=== PATIENT | female | born 1990 ===

== ENCOUNTER 2020-11-07 09:42 | Outpatient (REF) | payer MEDICAID, SELFPAY | END 2020-11-07 09:43 | disposition home or self-care (01) | LOC: HO.LAB 09:42 | PROVIDERS: Visit Provider Internal Medicine | DX: Z20.828 Contact with and (suspected) exposure to other viral communicable diseases (principal) | CPT/HCPCS: C9803; U0003 ==

== ENCOUNTER 2021-02-16 08:14 | Emergency (ER) | payer MEDICAID, SELFPAY ==
--- NOTE | ~2021-02-16 | XR_ITS ---
EXAMINATION: XR CHEST CLINICAL INFORMATION: Cough COMPARISON: November 09, 2014 TECHNIQUE: AP portable chest view of the chest was obtained. FINDINGS: No significant abnormality is noted involving the heart, lungs, mediastinum, bony thorax or soft tissues. XR/XR chest 1V IMPRESSION: No acute disease.
[2021-02-16 08:20] VITALS: BP 115/70; PULSE 113; RESP 18; TEMP 37.7; O2SAT 98; BMI 29.2
--- NOTE | 2021-02-16 09:22 | PC.NURSE ---
seen by provider, swab and ua sent, awaiting xray. givn water per request, tolerating po w/o issue, medicated per emar.
[2021-02-16 09:26] LABS: Glucose Urine UA NEG (NEG); Leukocyte Esterase Urine NEG (NEG); Nitrite Urine NEG (NEG); PH 8.5 (5.0-8.0); Urine Blood 2+ (NEG); Urine Ketones NEG (NEG); Urine Protein NEG (NEG-TRACE)
[2021-02-16 09:27] LABS: Appearance Urine HAZY; Color Urine YELLOW
[2021-02-16 09:28] LABS: UPreg QC Valid YES; Urine Pregnancy NEGATIVE (NEGATIVE)
[2021-02-16 09:41] LABS: Mucus Urine TRACE /LPF; Squamous Epithelial Cell Urine 2+ /LPF
[2021-02-16 10:09] LABS: Influenza A PCR NEGATIVE (Negative); Influenza B PCR NEGATIVE (Negative); Resp Syncy Virus RNA Qual PCR NEGATIVE (Negative); SARS COV2 PCR INHOUSE POSITIVE (Negative)
--- NOTE | 2021-02-16 10:12 | ED_ITS ---
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 Onset (ago): day(s) (1) Radiation: non-radiation Severity: moderate Quality: aching Relieving factors: none Exacerbating factors: none Associated symptoms: cough Treatments prior to arrival: none Related Data Previous Rx's Medication Instructions Recorded ondansetron HCl [Zofran] 4 mg PO Q8H PRN #10 tab 02/16/21 Allergies Allergy/AdvReac Type Severity Reaction Status Date / Time No Known Allergies Allergy Unverified 08/11/20 17:35 sumatriptan AdvReac Unknown vomiting Verified 01/23/18 00:00 Review of Systems Review of Systems: Constitutional: No Weight loss, No Fever, No Chills, No Night Sweats, No Fatigue, No Malaise ENT/Mouth: No Hearing loss, No Ear Pain, No Nasal Congestion, No Sinus Pain, No Hoarseness, No sore throat, No Rhinorrhea, No Swallowing Difficulty Eyes: No Eye Pain, No Swelling, No Redness, No Foreign Body, No Discharge, No Vision Changes Cardiovascular: No Chest Pain, No SOB, No Dyspnea on Exertion, No Orthopnea, No Edema, No Palpitations Respiratory: + Cough, No Sputum, No Wheezing, No Smoke Exposure, No Dyspnea Gastrointestinal: + Nausea, No Vomiting, No Diarrhea, No Constipation, No abdominal Pain, No Hematochezia, No Melena Genitourinary: no irregular bleeding, No Dysuria, No Urinary Frequency, No Hematuria, No Urinary Incontinence, No Urgency, No Flank Pain, No Urinary Flow Changes, No Hesitancy Musculoskeletal: No joint pain, No Myalgias, No Joint Swelling Skin: No Skin Lesions, No rash Neuro: No Weakness, No Numbness, No Paresthesias, No Loss of Consciousness, No Dizziness, No Headache Psych: No Social Issues Heme/Lymph: No Bruising, No Bleeding,No Lymphadenopathy Endocrine: No Polyuria, No Polydipsia, No Temperature Intolerance Yes all other systems are reviewed and are negative [facility] Past Medical History Medical History (Updated 02/16/21 @ 11:09 by John Wharton NP) No known health problems Social History Social History Alcohol intake: never Smoking Status: Former smoker Smoked in Last 30 Days: No Use of substances other than those prescribed or required for medical reasons: No Advance Directives: No Advance Directives Information Provided: No Physical Exam Vital Signs: Vital Signs: Last Vital Signs Temp 99.9 F 02/16/21 08:20 Pulse 113 H 02/16/21 08:20 Resp 18 02/16/21 08:20 BP 115/70 02/16/21 08:20 Pulse Ox 98 02/16/21 08:20 Body Mass Index 29.2 Course Course Course Narrative: Otherwise healthy denies any significant past medical history does have remote history of cholecystectomy. Overall nontoxic appearing. VSS, NAD, chest x-ray negative. Slightly tachy but febrile upon arrival and she is COVID positive. Aside from diffuse body aches is no abdominal pain, chest pain, shortness of breath. Will discharge home with supportive care, return, follow- up instructions. Medical Decision Making Lab Data Labs: Lab Results 02/16/21 02/16/21 02/16/21 Range/Units 09:15 09:16 09:16 Urine Color YELLOW Urine Appearance HAZY Urine pH 8.5 H (5.0-8.0) Ur Specific [place] 1.020 (1.005-1.025) Urine Protein NEG (NEG-TRACE) MG/DL Urine Glucose (UA) NEG (NEG) MG/DL Urine Ketones NEG (NEG) MG/DL Urine Blood 2+ H (NEG) Urine Nitrite NEG (NEG) Ur Leukocyte Esterase NEG (NEG) Urine RBC 15-29 H (0) /HPF Urine WBC 1-4 (0-4) /HPF Ur Squamous Epith Cells 2+ /LPF Urine Bacteria NONE /LPF Urine Mucus TRACE /LPF Urine Test NEGATIVE (NEGATIVE) Coronavirus (PCR) POSITIVE A (Negative) Influenza Type A (PCR) NEGATIVE (Negative) Influenza Type B (PCR) NEGATIVE (Negative) RSV RNA Qual (PCR) NEGATIVE (Negative) Discharge Plan Discharge Clinical Impression: COVID-19 Patient Disposition: Home, Self-Care Instructions: COVID-19 (Coronavirus Disease 2019) (ED) Additional Instructions: Drink plenty fluids Supportive care discussed Isolates your self/quarantine for 14 days Return if any concerns or worsening symptoms Follow up with her primary care doctor as discussed via phone as needed Thank you Prescriptions: New ondansetron HCl [Zofran] 4 mg tablet 4 mg PO Q8H PRN (Reason: nausea and vomiting) Qty: 10 RF: 0 Referrals: Leilani Wong MD [Primary Care Provider] - 2 weeks (Phone visit)
== END 2021-02-16 11:21 | disposition home or self-care (01) ==
PROVIDERS: Nurse Practitioner Primary Care; Emergency Provider Emergency Medicine; PCP Internal Medicine
DX: U07.1 COVID-19 (principal); R51.9 Headache, unspecified
CPT/HCPCS: 0241U; 36415; 71045; 81001; 81025; 99283; 99284

== ENCOUNTER 2021-07-11 08:40 | Emergency (ER) | payer MEDICAID, SELFPAY ==
[2021-07-11 08:51] VITALS: BP 121/76; PULSE 78; RESP 18; TEMP 36.6; O2SAT 98; BMI 32.9
--- NOTE | 2021-07-11 08:58 | PC.NURSE ---
waiting for paper inserter
--- NOTE | 2021-07-11 09:04 | ED.HA ---
HPI - Headache General Chief Complaint: Headache Stated Complaint: headache Time Seen by Provider: 07/11/21 09:02 Source: patient Mode of arrival: ambulatory Limitations: no limitations History of Present Illness HPI Narrative: Patient's history of migraine been complaining of right-sided headache for last 3 days similar to that in the past with light sensitivity and nausea and vomiting no fever no chills no neck pain MD elicited complaint: migraine Related Data Previous Rx's Medication Instructions Recorded ondansetron HCl 4 mg tablet 4 mg PO Q8H PRN #10 tab 02/16/21 (Zofran) frvrtrptgq-wqkeaibpzpwpy-aksvqpjm 1 cap PO Q6H PRN #20 cap 07/11/21 50 mg-300 mg-40 mg capsule (Fioricet) sumatriptan succinate 50 mg tablet 50 mg PO Q2H PRN #10 tab 07/11/21 (Imitrex) Allergies Allergy/AdvReac Type Severity Reaction Status Date / Time No Known Allergies Allergy Unverified 08/11/20 17:35 Review of Systems Review of Systems: Yes all other systems are reviewed and are negative [facility] Past Medical History Medical History No known health problems Social History Social History Alcohol intake: never Advance Directives: No Advance Directives Information Provided: No Patient : No Physical Exam Vital Signs: Vital Signs: Last Vital Signs Temp 97.9 F 07/11/21 08:51 Pulse 69 07/11/21 10:00 Resp 18 07/11/21 08:51 BP 124/68 07/11/21 10:00 Pulse Ox 98 07/11/21 08:51 Body Mass Index 32.9 Const: General: no acute distress and well developed Orientation/consciousness: patient oriented x3 HENMT: Head: Yes normocephalic and No Temporal artery tenderness present Face and sinus: Yes normal facial exam Mouth: Normal oral and palatal mucosa present Eyes: General: appearance normal, both eyes and all related structures Neck: Neck: Yes full ROM Lymphatic: no lymphadenopathy noted Resp: Effort & Inspection: able to speak in complete sentences Auscultation: clear to auscultation bilaterally Cardio: Palpation: normal PMI Rate: regular rate Rhythm: regular rhythm Heart sounds: S1 normal heart sound present and S2 normal heart sound present Neuro: General: patient oriented x3, gait normal, no focal motor deficits and CN's II-XI intact bilaterally MDM - Headache MDM Narrative Medical decision making narrative: Patient feeling much better after Imitrex headache almost gone will discharge patient home Differential Diagnosis Differential diagnosis: Likely migraine Discharge Plan Discharge Clinical Impression: Migraine Qualifiers: Migraine type: without aura Status migrainosus presence: without status migrainosus Intractability: not intractable Qualified Code(s): G43.009 - Migraine without aura, not intractable, without status migrainosus Patient Disposition: Home, Self-Care Instructions: Migraine Headache (ED) Additional Instructions: Rest at home take medication for her headache as prescribed Imitrex 1 tablet at onset of headache repeat in 2 hours if headache is still there maximum 2 tablets in 24 hours Prescriptions: New sumatriptan succinate [Imitrex] 50 mg tablet 50 mg PO Q2H PRN (Reason: migraine headache) Qty: 10 RF: 0 xejyldhcyv-dtiuxkjonxuvv-ufbz [Fioricet] 50-300-40 mg capsule 1 cap PO Q6H PRN (Reason: pain) Qty: 20 RF: 0 No Action ondansetron HCl [Zofran] 4 mg tablet 4 mg PO Q8H PRN (Reason: nausea and vomiting) Qty: 10 RF: 0 Stand Alone Forms: Work/School Release
[2021-07-11] MEDS: Ondansetron ODT 4 MG TAB.RAPDIS TRANSLINGU (09:19)
[2021-07-11 10:00] VITALS: BP 124/68; PULSE 69
--- NOTE | 2021-07-11 10:14 | PC.NURSE ---
PATIENT STATES FEELING BETTER PAIN LEVEL CURRENTLY 2/10. PROVIDER AWARE
== END 2021-07-11 10:47 | disposition home or self-care (01) ==
PROVIDERS: Emergency Provider Internal Medicine; PCP Internal Medicine
DX: G43.009 Migraine without aura, not intractable, without status migrainosus (principal); Z86.16 Personal history of COVID-19
CPT/HCPCS: 96372; 99284; J3030

== ENCOUNTER 2022-01-06 20:13 | Emergency (ER) | payer MEDICAID, SELFPAY ==
[2022-01-06 20:54] VITALS: BP 133/85; PULSE 79; RESP 16; TEMP 36.3; O2SAT 98; BMI 32.0
--- NOTE | 2022-01-07 00:02 | ED_ITS ---
HPI - Animal Bite General Chief Complaint: Animal Bite Stated Complaint: dog bite @ work Source: patient Mode of arrival: ambulatory Limitations: language barrier History of Present Illness HPI narrative: 31-year-old female presents with a dog bite to the right thigh. 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 complaint: animal bite Onset (ago): hour(s) (Within the hour of arrival) Animal: dog Description of animal: unknown animal Mechanism: bite Location: buttocks Pain description: constant (Aching) Severity scale (1-10): 5 Context: unprovoked Treatments prior to arrival: wound dressing(s) Related Data Patient tetanus UTD: No Previous Rx's Medication Instructions Recorded ondansetron HCl 4 mg tablet 4 mg PO Q8H PRN #10 tab 02/16/21 (Zofran) vdcnynacas-rhdcufxrcldwo-mnjzogvi 1 cap PO Q6H PRN #20 cap 07/11/21 50 mg-300 mg-40 mg capsule (Fioricet) sumatriptan succinate 50 mg tablet 50 mg PO Q2H PRN #10 tab 07/11/21 (Imitrex) Allergies Allergy/AdvReac Type Severity Reaction Status Date / Time No Known Allergies Allergy Verified 01/06/22 20:52 Review of Systems Review of Systems: Constitutional: No Fever, No Chills ENT/Mouth: No Ear Pain, No Hoarseness, No sore throat Eyes: No Eye Pain, No Swelling, No Redness, No Foreign Body Cardiovascular: No Chest Pain, No SOB Respiratory: No Cough, No Dyspnea Gastrointestinal: No Nausea, No Vomiting, No Diarrhea, No abdominal Pain Genitourinary: No Dysuria, No Hematuria Musculoskeletal: positive left buttock pain, No Myalgias, No Joint Swelling Skin: Positive animal bite to the left buttock, No Skin lacerations, No rash Neuro: No Weakness, No Numbness, No Paresthesias, No Loss of Consciousness, No Dizziness, No Headache Psych: No Anxiety/Panic, No Depression Heme/Lymph: no easy bruising, no Lymphadenopathy Endocrine: No Polyuria, No Polydipsia Yes all other systems are reviewed and are negative PMFSH Past Medical History Attestation statement: The following information was validated with the patient. Source: old records reviewed Medical History No known health problems Social History Social History Alcohol intake: never Advance Directives: No Physical Exam Vital Signs: Vital Signs: Last Vital Signs Temp 97.3 F 01/06/22 20:54 Pulse 79 01/06/22 20:54 Resp 16 01/06/22 20:54 BP 133/85 01/06/22 20:54 Pulse Ox 98 01/06/22 20:54 BMI result Body Mass Index 32.0 Appearance: Alert. Oriented X3. No acute distress. Eyes: Pupils equal, round and reactive to light. ENT: Pharynx normal. Neck: Normal inspection. Neck supple. CVS: Normal heart rate and rhythm. Pulses normal. Respiratory: No respiratory distress. Breath sounds normal. Abdomen: Soft and nontender. Skin: 0.5 cm puncture wound to the right buttock, otherwise Skin warm and dry. Normal skin color. Normal skin turgor. Extremities: No lower extremity edema. Gait well-balanced well coordinated. Neuro: No motor deficit. No sensory deficit. Cranial nerves 2-12 intact. Course Course Course Narrative: 31-year-old female presents with a animal bite, unknown dog, to the right buttock. Patient clean the area and applied a bandage. Will treat for rabies and update Tdap vaccine. Patient does understand that she must return for rabies series. Patient verbalized understanding of and agrees plan of care discharge home. Verbalized understanding of signs and symptoms indicating need for emergent intervention. bookseamer blindstitch utilized for all correspondence. Google translate utilized for discharge instructions. MDM - Animal Bite Differential Diagnosis Differential diagnosis: Likely dog bite Medical Records Attestation: I reviewed the patient's medical records. Discharge Plan Discharge Clinical Impression: Rabies contact, Dog bite Patient Disposition: Home, Self-Care Instructions: Animal Bite (ED), Rabies (ED) Additional Instructions: Fuiste evaluado por mordedura de ko en la nalga derecha. Le tratamos con inmunoglobulina antirr?bica y vacuna antirr?bica. Debe regresar para la serie de vacunas contra la gracia. Actualizamos aranda vacuna Tdap hoy. Chelo por elegir juan departamento de emergencias para aranda evaluaci?n. Por favor, roland un seguimiento con el m?dico de atenci?n primaria seg?n sea necesario. Regrese al departamento de emergencias por cualquier s?ntoma nuevo, preocupante o que empeore. You were evaluated for dog bite to the right buttock. We treated you with rabies immunoglobulin and rabies vaccine. You must return for rabies vaccine series. We updated your Tdap vaccine today. Thank you for choosing this emergency department for evaluation. Please follow-up with primary care physician as needed. Return to the emergency department for any new, concerning, or worsening symptoms. Prescriptions: No Action ondansetron HCl [Zofran] 4 mg tablet 4 mg PO Q8H PRN (Reason: nausea and vomiting) Qty: 10 0RF sumatriptan succinate [Imitrex] 50 mg tablet 50 mg PO Q2H PRN (Reason: migraine headache) Qty: 10 0RF Rx Instructions: do not exceed 2 doses per 24 hrs elqkvojkqn-abicmhstnxrje-mueq [Fioricet] 50-300-40 mg capsule 1 cap PO Q6H PRN (Reason: pain) Qty: 20 0RF Referrals: [facility] [Provider Group] - 2 days (Dog bite, rabies vaccine)
[2022-01-07] MEDS: Rabies Vaccine (PCEC)/PF 1 ML VIAL IM (00:43)
[2022-01-07] MEDS: Rabies Immune Globulin/PF 900 UNIT/3 ML VIAL 1589.42 UNIT IM (00:44)
[2022-01-07] MEDS: Diphth,Pertus(ACell),Tet Adult 0.5 ML SYRINGE IM (00:45)
== END 2022-01-07 01:46 | disposition home or self-care (01) ==
LOC: HO.ED 01-07 00:22
PROVIDERS: Emergency Provider Emergency Medicine Emergency Medical Services
DX: S70.371A Other superficial bite of right thigh, initial encounter (principal); M79.604 Pain in right leg; W54.0XXA Bitten by dog, initial encounter; Y93.9 Activity, unspecified; Y92.9 Unspecified place or not applicable; Y99.0 Civilian activity done for income or pay; Z79.899 Other long term (current) drug therapy
CPT/HCPCS: 90375; 90471; 90675; 90715; 96372; 99284

== ENCOUNTER 2022-01-10 07:19 | Outpatient (REF) | payer MEDICAID, SELFPAY | END 2022-01-10 07:20 | disposition home or self-care (01) | LOC: HO.MDS 07:19 | PROVIDERS: PCP Internal Medicine | DX: Z29.14 Encounter for prophylactic rabies immune globulin (principal); S31.815D Open bite of right buttock, subsequent encounter; W54.0XXD Bitten by dog, subsequent encounter; Z20.3 Contact with and (suspected) exposure to rabies | CPT/HCPCS: 90471; 90675 ==

== ENCOUNTER 2022-01-14 09:54 | Outpatient (REF) | payer MEDICAID, SELFPAY | END 2022-01-14 09:55 | disposition home or self-care (01) | LOC: HO.MDS 09:54 | PROVIDERS: PCP Internal Medicine | DX: Z29.14 Encounter for prophylactic rabies immune globulin (principal); S70.371D Other superficial bite of right thigh, subsequent encounter; W54.0XXD Bitten by dog, subsequent encounter; Z20.3 Contact with and (suspected) exposure to rabies | CPT/HCPCS: 90471; 90675 ==

== ENCOUNTER 2022-01-21 09:40 | Outpatient (REF) | payer MEDICAID, SELFPAY | END 2022-01-21 09:41 | disposition home or self-care (01) | LOC: HO.MDS 09:40 | DX: Z29.14 Encounter for prophylactic rabies immune globulin (principal); S70.371D Other superficial bite of right thigh, subsequent encounter; S30.870D Other superficial bite of lower back and pelvis, subsequent encounter; W54.0XXD Bitten by dog, subsequent encounter; Z20.3 Contact with and (suspected) exposure to rabies | CPT/HCPCS: 90471; 90675 ==

== ENCOUNTER 2022-05-17 12:46 | Outpatient (RCR) | payer OTHER, SELFPAY | END 2022-05-18 10:48 | disposition home or self-care (01) | LOC: HO.WCC 12:46 | PROVIDERS: PCP Internal Medicine; Visit Provider Surgery | DX: Z09 Encounter for follow-up examination after completed treatment for conditions other than malignant neoplasm (principal); I10 Essential (primary) hypertension; Z87.2 Personal history of diseases of the skin and subcutaneous tissue | CPT/HCPCS: 99212 ==

== ENCOUNTER 2022-12-01 07:55 | Outpatient (REF) | payer OTHER, SELFPAY ==
[2022-12-01 08:12] LABS: MANUAL DIFF FLAG NO
[2022-12-01 08:34] LABS: Basophils Percent Auto 0.8 % (0-2); Eosinophils Absolute Auto 0.1 X10*3/uL (0.0-0.4); Hematocrit 41.1 % (37.0-47.0); Hemoglobin 13.6 g/dl (12.0-16.0); Imm Gran Abs Auto 0.01 X10*3/uL (0.00-0.03); Imm Gran Pct Auto 0.2 % (0.0-0.4); Lymphocytes Absolute Auto 1.3 X10*3/uL (1.2-4.9); Lymphocytes Percent Auto 26.9 % (20-40); Mean Corpuscular HGB Conc 33.1 g/dl (31.0-35.0); Mean Corpuscular Hemoglobin 28.3 pg (27.0-33.0); Mean Corpuscular Volume 85.4 fL (80.0-98.0); Mean Platelet Volume 10.7 fL (9.4-12.3); Monocytes Absolute Auto 0.3 X10*3/uL (0.1-1.2); Monocytes Percent Auto 5.5 % (2-11); Neutrophils Absolute Auto 3.2 x10*3/uL (2.0-8.3); Neutrophils Percent Auto 64.6 % (45-73); Platelet Count 254 X10*3/uL (160-400); Red Blood Count 4.81 X10*6/uL (4.20-5.50); Red Cell Distribution Width 13.2 % (11.0-16.0)
[2022-12-01 08:39] LABS: Prothrombin Time 11.6 SEC (10.0-13.1)
[2022-12-01 08:41] LABS: Partial Thromboplastin Time 38.8 SEC (26.0-36.4)
[2022-12-01 08:45] LABS: Estimated Average Glucose 100 mg/dL; Hemoglobin A1c % 5.1 %
[2022-12-01 09:05] LABS: Alanine Aminotransferase 18 U/L (0-31); Albumin Level 4.7 g/dL (3.5-5.0); Alkaline Phosphatase 64 U/L (39-117); Anion Gap 13 (12-20); Aspartate Amino Transferase 31 U/L (5-31); Bilirubin Total 0.8 mg/dL (0.0-1.0); Blood Urea Nitrogen 17 mg/dL (9-16); Calcium 9.8 mg/dL (8.4-10.2); Carbon Dioxide 27 mmol/L (22-29); Chloride 104 mmol/L (96-108); Estimated Glomerular Filt Rate > 60; Glucose Fasting 88 mg/dL (60-99); Potassium 4.2 mmol/L (3.3-5.1); Sodium 140 mmol/L (135-145); Total Protein 7.8 g/dL (6.5-8.0)
[2022-12-01 09:13] LABS: HCG Quantitative < 2 mIU/mL
[2022-12-03 09:34] LABS: HIV AB/AG Nonreactive (Nonreactive); HIV Num 1 0.07 S/CO (0.00-0.99)
== END 2022-12-01 07:56 | disposition home or self-care (01) ==
LOC: HO.LAB 07:55
PROVIDERS: Visit Provider Internal Medicine
DX: Z01.818 Encounter for other preprocedural examination (principal); Z11.4 Encounter for screening for human immunodeficiency virus [HIV]; D64.9 Anemia, unspecified; E11.40 Type 2 diabetes mellitus with diabetic neuropathy, unspecified
CPT/HCPCS: 36415; 80053; 83036; 84702; 85025; 85610; 85730; 87389

== ENCOUNTER 2022-12-04 10:22 | Outpatient (REF) | payer OTHER, SELFPAY ==
--- NOTE | 2022-12-04 10:30 | ECG_ITS ---
Test Reason : PRE OP Blood Pressure : / mmHG Vent. Rate : 059 BPM Atrial Rate : 059 BPM P-R Int : 148 ms QRS Dur : 090 ms QT Int : 390 ms P-R-T Axes : 024 004 018 degrees QTc Int : 386 ms Sinus bradycardia Otherwise normal ECG When compared with ECG of 23-AUG-2016 02:45, No significant change was found Referred By: Adriane Frost Electronically Signed By:Jett Cavanaugh
[2022-12-04 11:55] LABS: Sickle Cell Scr NEGATIVE (NEGATIVE)
[2022-12-04 13:09] LABS: Free T4 (Free Thyroxine) 1.06 ng/dL (0.71-1.85); Thyroid Stimulating Hormone 0.33 uIU/mL (0.32-4.0)
[2022-12-06 05:03] LABS: Triiodothyronine T3 Free 4.1 pg/mL (2.3-4.2)
== END 2022-12-04 10:23 | disposition home or self-care (01) ==
LOC: HO.LAB 10:22
PROVIDERS: Nurse Practitioner Family; PCP Internal Medicine; Visit Provider Internal Medicine
DX: Z01.818 Encounter for other preprocedural examination (principal)
CPT/HCPCS: 36415; 84439; 84443; 84481; 85660; 93005

== ENCOUNTER 2023-02-27 16:30 | Emergency (ER) | payer OTHER, SELFPAY ==
--- NOTE | ~2023-02-27 | US_ITS ---
EXAMINATION: US VENOUS ULTRASOUND WITH DOPPLER LOWER EXTREMITY, LEFT CLINICAL INFORMATION: Pain. COMPARISON: No similar priors. TECHNIQUE: Ultrasound of the deep veins is performed from the hip to the calf with compression sonography and color and pulse Doppler assessment. Spectral analysis with color-flow imaging is performed. FINDINGS: There is normal venous compression and respiratory variation and augmented flow. The visualized common femoral vein, superficial femoral vein, profunda femoral vein, popliteal vein, and the trifurcation region shows no evidence of deep venous thrombosis. There is no significant popliteal fossa cyst. In the area of pain in the posterior distal thigh and posterior calf as indicated by the patient, there are prominent venous varicosities. If the patient's symptoms persist, followup ultrasound in 5 days 7 days might be of value to exclude proximal propagation from a non-visualized calf vein. US/US venous duplex LE IMPRESSION: 1. No DVT demonstrated in the left lower extremity. 2. In the area of pain in the posterior distal thigh and posterior calf as indicated by the patient, there are prominent venous varicosities. Correlation with a targeted ultrasound for venous reflux/insufficiency and cardiovascular lab director consultation could be obtained if clinically indicated for further management of these varicosities.
[2023-02-27 17:07] VITALS: BP 130/80; PULSE 80; RESP 18; TEMP 36.8; O2SAT 97; BMI 29.2
--- NOTE | 2023-02-27 17:08 | ED.EXTPRO ---
HPI - Extremity Problem General Stated complaint: L leg circulation Related Data Previous Rx's Medication Instructions Recorded topiramate 25 mg tablet 25 mg PO BEDTIME 90 days #90 tabs 03/21/22 mayfuzescz-hmqeowoxiqjqs-aqubuvcr 1 cap PO Q6H PRN pain #10 caps 05/04/22 50 mg-300 mg-40 mg capsule (Fioricet) Allergies Allergy/AdvReac Type Severity Reaction Status Date / Time sumatriptan [From Imitrex] AdvReac Severe palpitations, Verified 02/27/23 17:11 arm numbness PMFSH Past Medical History Medical History Class 1 obesity with body mass index (BMI) of 32.0 to 32.9 in adult COVID-19 Migraines Surgical History History of cholecystectomy Family History Family History (Updated 01/02/23 @ 17:40 by Leilani Kimbrough MD) Father Diabetes mellitus Hypertension Social History Social History Housing: Apartment Alcohol intake: never Patient Tobacco Use Status: Never used Tobacco e-Cigarette/Vaping Use: Never Used Second Hand Smoke Exposure: No service: No Current occupational status: employed Current occupational exposures/hazards: No Cognitive needs: Yes Hearing needs: No Vision needs: No Course Course Course Narrative: RME - 32 yo female with history of PTSD, migraines, anxiety who presents to the ER for evaluation of left leg cramping that is acute on chronic, worse the last 2 weeks. She states the toes on her left foot turn black sometimes. She reports severe cramping pains in her calf and hamstring when walking. Exam reveals left foot is warm and well perfused, 2+ pulses. toes slightly cool but normal color, cap refill <3sec. No evidence of arterial disease. +calf tenderness but no swelling or redness. Plan: LE doppper and basic labs to r/o metabolic cause Discharge Plan Discharge Prescriptions: No Action topiramate 25 mg tablet 25 mg PO BEDTIME 90 Days Qty: 90 0RF rodekwbhrl-uldaldgdxamwu-mqlo [Fioricet] 50-300-40 mg capsule 1 cap PO Q6H PRN (Reason: pain) Qty: 10 0RF
[2023-02-27 17:37] LABS: MANUAL DIFF FLAG NO
[2023-02-27 17:43] LABS: Basophils Absolute Auto 0.1 X10*3/uL (0.0-0.2); Basophils Percent Auto 0.6 % (0-2); Eosinophils Absolute Auto 0.2 X10*3/uL (0.0-0.4); Eosinophils Percent Auto 1.9 % (0-4); Hematocrit 45.2 % (37.0-47.0); Hemoglobin 14.6 g/dl (12.0-16.0); Imm Gran Abs Auto 0.03 X10*3/uL (0.00-0.03); Imm Gran Pct Auto 0.4 % (0.0-0.4); Lymphocytes Absolute Auto 2.2 X10*3/uL (1.2-4.9); Lymphocytes Percent Auto 27.7 % (20-40); Mean Corpuscular HGB Conc 32.3 g/dl (31.0-35.0); Mean Corpuscular Hemoglobin 27.1 pg (27.0-33.0); Mean Platelet Volume 10.1 fL (9.4-12.3); Monocytes Absolute Auto 0.5 X10*3/uL (0.1-1.2); Monocytes Percent Auto 6.5 % (2-11); Neutrophils Absolute Auto 5.1 x10*3/uL (2.0-8.3); Neutrophils Percent Auto 62.9 % (45-73); Platelet Count 304 X10*3/uL (160-400); Red Blood Count 5.38 X10*6/uL (4.20-5.50); Red Cell Distribution Width 13.2 % (11.0-16.0)
[2023-02-27 17:55] LABS: Anion Gap 12 (12-20); Blood Urea Nitrogen 17 mg/dL (9-16); Calcium 9.6 mg/dL (8.4-10.2); Carbon Dioxide 27 mmol/L (22-29); Chloride 105 mmol/L (96-108); Creatinine Clr Calc Pharmacy 107.1; Estimated Glomerular Filt Rate > 60; Glucose Random 76 mg/dL (60-115); Magnesium 2.3 mg/dL (1.6-2.6); Potassium 4.1 mmol/L (3.3-5.1); Sodium 140 mmol/L (135-145)
--- OUTSIDE RECORDS SUMMARY | 2023-02-27 17:58 | XMS_ITS | Continuity of Care Document ---
Author Name Unknown Organization [facility] Emmanuel babbs [facility] Address [address] [place] [address]- Care Team Providers Care Director Validation Name Role Phone Not on Staff, PCP Primary Care Physician Unavail able Encounter [facility] Date(s): 02/17/20 - 02/27/20 [facility] Franks [facility] [address] [place] [address]- Attending Physician: Libby Nieves Admitting Physician: Libby Nieves Referring Physician: AdmtrLibby Allergies, Adverse Reactions, Alerts Substance Reaction Severity Status NKA Active Medications Ibuprofen 800 mg, By Mouth, Refills 0, Maintenance, 02/11/20 11:29:00 EDT Start Date: 02/11/20 Status: Ordered Problem List Condition Effective Dates Status Health Status Inform ant Hemorrhoid(Confirmed) Active Kidney stones(Confirmed) Active Migraine(Confirmed) Active Dyspareunia, female(Confirmed) Active PCOS (polycystic ovarian syndrome)(Confirmed) Active Seasonal allergies(Confirmed) Active Social History Social History Type Response Smoking Status Never (less than 100 in lifetime) entered on: 02/11/20 Sex
[2023-02-27 18:16] VITALS: BP 111/66; PULSE 83; RESP 16; TEMP 36.9; O2SAT 98
[2023-02-27 18:16] LABS: TSH reflex Free T4 0.85 uIU/mL (0.32-4.0)
--- NOTE | 2023-02-27 18:35 | ED_ITS ---
HPI - General Adult General Chief complaint: Extremity Injury, Lower Stated complaint: L leg circulation Time Seen by Provider: 02/27/23 17:22 Source: patient Limitations: no limitations History of Present Illness HPI narrative: Patient states she has been having cramping and pain in her left leg for the past 2 weeks. She was sent by her PCP for concern for deep vein thrombosis. No history of DVTs. She does have a history of varicose veins however. Toes were little cold but that is happened in the past as well. No recent injuries No fevers chills. No chest pain or shortness of breath. No history of thromboembolic disease Related Data Previous Rx's Medication Instructions Recorded topiramate 25 mg tablet 25 mg PO BEDTIME 90 days #90 tabs 03/21/22 scmudwnceh-xvbezcwlheigg-ytufsxav 1 cap PO Q6H PRN pain #10 caps 05/04/22 50 mg-300 mg-40 mg capsule (Fioricet) ibuprofen 800 mg tablet 800 mg PO TID PRN pain #30 tabs 02/27/23 Allergies Allergy/AdvReac Type Severity Reaction Status Date / Time sumatriptan [From Imitrex] AdvReac Severe palpitations, Verified 02/27/23 17:11 arm numbness Review of Systems Constitutional: Comments: No fevers or chills or malaise Cardiovascular: Comments: No chest pain Respiratory: Comments: No cough or dyspnea Musculoskeletal: Comments: Left leg pain is described PMFSH Past Medical History Medical History Class 1 obesity with body mass index (BMI) of 32.0 to 32.9 in adult COVID-19 Migraines Surgical History History of cholecystectomy Family History Family History (Updated 01/02/23 @ 17:40 by Leilani Kimbrough MD) Father Diabetes mellitus Hypertension Social History Social History Housing: Apartment Alcohol intake: never Patient Tobacco Use Status: Never used Tobacco e-Cigarette/Vaping Use: Never Used Second Hand Smoke Exposure: No Advance Directives: No Advance Directives Information Provided: No service: No Current occupational status: employed Current occupational exposures/hazards: No Cognitive needs: Yes Hearing needs: No Vision needs: No Physical Exam ED Vital Signs: Vital Signs - 24 hr 02/27/23 17:07 02/27/23 18:16 Temperature 98.3 F 98.4 F Pulse Rate 80 83 Respiratory Rate 18 16 Blood Pressure 130/80 111/66 Pulse Oximetry 97 98 Oxygen Delivery Method Room Air Room Air BMI result Body Mass Index 29.2 Const Other: Awake alert. No acute distress Resp Other: Clear and equal bilaterally without Wheezes rales or rhonchi Cardio Other: Regular rate and rhythm without murmurs rubs or gallops Skin Other: Warm pink and dry. No increased warmth or erythema. Left leg without cyanosis. Capillary refill is intact, less than 2 seconds Extrem Other: Left leg with some calf tenderness to palpation. Multiple varicosities in the left calf and popliteal fossa. Dorsalis pedis pulse palpable and strong. Great toe and 2nd toe cool but pink with normal capillary refill Medical Decision Making Medical Decision Making MDM Narrative: Patient with varicose veins and calf pain worsening over 2 weeks. No clinical evidence of arterial insufficiency Rule out deep vein thrombosis. Given muscular cramping, rule out electrolyte abnormalities such as hypokalemia 18:37. Lab work including electrolytes and potassium are normal. Ultrasound shows no evidence of deep vein thrombosis but does redemonstrate the varicose veins seen on clinical exam. Prescription for ibuprofen and follow-up recommendations for Dr. Deluna, vascular surgery Lab Data 02/27/23 17:32 02/27/23 17:32 Labs: Lab Results 02/27/23 02/27/23 02/27/23 Range/Units 17:32 17:32 17:32 WBC 8.0 (4.8-10.8) X10*3/uL RBC 5.38 (4.20-5.50) X10*6/uL Hgb 14.6 (12.0-16.0) g/dl Hct 45.2 (37.0-47.0) % MCV 84.0 (80.0-98.0) fL MCH 27.1 (27.0-33.0) pg MCHC 32.3 (31.0-35.0) g/dl RDW 13.2 (11.0-16.0) % Plt Count 304 (160-400) X10*3/uL MPV 10.1 (9.4-12.3) fL Immature Gran % (Auto) 0.4 (0.0-0.4) % Neut % (Auto) 62.9 (45-73) % Lymph % (Auto) 27.7 (20-40) % Spink % (Auto) 6.5 (2-11) % Eos % (Auto) 1.9 (0-4) % Baso % (Auto) 0.6 (0-2) % Lymph # (Auto) 2.2 (1.2-4.9) X10*3/uL Spink # (Auto) 0.5 (0.1-1.2) X10*3/uL Eos # (Auto) 0.2 (0.0-0.4) X10*3/uL Baso # (Auto) 0.1 (0.0-0.2) X10*3/uL Abs Immat Gran (auto) 0.03 (0.00-0.03) X10*3/uL Absolute Neuts (auto) 5.1 (2.0-8.3) x10*3/uL Absolute Nucleated RBC 0.000 (0.0-0.012) X10*3/uL Nucleated RBC % (auto) 0.0 (0.0-0.2) /100WBC Sodium 140 (135-145) mmol/L Potassium 4.1 (3.3-5.1) mmol/L Chloride 105 (96-108) mmol/L Carbon Dioxide 27 (22-29) mmol/L Anion Gap 12 (12-20) BUN 17 H (9-16) mg/dL Creatinine 0.69 (0.5-1.4) mg/dL Estim Creat Clear Calc 107.1 Estimated GFR > 60 Random Glucose 76 (60-115) mg/dL Calcium 9.6 (8.4-10.2) mg/dL Magnesium 2.3 (1.6-2.6) mg/dL TSH 0.85 (0.32-4.0) uIU/mL Discharge Plan Discharge Clinical Impression: Cramp in muscle, Varicose vein of leg Patient Disposition: Home, Self-Care Instructions: Leg Cramps (ED), Venous Insufficiency (DC) Prescriptions: New ibuprofen 800 mg tablet 800 mg PO TID PRN (Reason: pain) Qty: 30 0RF No Action topiramate 25 mg tablet 25 mg PO BEDTIME 90 Days Qty: 90 0RF qoyykgfztw-qcmvwelgtqoyk-bcge [Fioricet] 50-300-40 mg capsule 1 cap PO Q6H PRN (Reason: pain) Qty: 10 0RF Referrals: Carlos Deluna MD [Physician] -
== END 2023-02-27 18:57 | disposition home or self-care (01) ==
PROVIDERS: Physician Assistant; Emergency Provider Emergency Medicine; PCP Internal Medicine
DX: I83.812 Varicose veins of left lower extremity with pain (principal); M79.605 Pain in left leg; R25.2 Cramp and spasm; Z79.899 Other long term (current) drug therapy
CPT/HCPCS: 36415; 80048; 83735; 84443; 85025; 93971; 99283; 99284

== ENCOUNTER → 2023-04-09 14:20 | Outpatient (BNVA) | payer OTHER, SELFPAY | PROVIDERS: PCP Internal Medicine; Visit Provider Surgery Vascular Surgery | DX: I83.12 Varicose veins of left lower extremity with inflammation (principal); E66.9 Obesity, unspecified; Z68.32 Body mass index [BMI] 32.0-32.9, adult | CPT/HCPCS: 99202 ==

== ENCOUNTER 2023-04-16 09:35 | Outpatient (REF) | payer OTHER, SELFPAY ==
[2023-04-18 19:43] LABS: HPV mRNA E6/E7 rflx Not Detected (Not Detected)
== END 2023-04-16 09:36 | disposition home or self-care (01) ==
LOC: HO.LNP 09:35
PROVIDERS: Obstetrics & Gynecology; PCP Internal Medicine; Visit Provider Advanced Practice Midwife
DX: Z01.419 Encounter for gynecological examination (general) (routine) without abnormal findings (principal); Z11.51 Encounter for screening for human papillomavirus (HPV)
CPT/HCPCS: 87624; 88142

== ENCOUNTER 2023-05-20 10:24 | Outpatient (REF) | payer OTHER, SELFPAY ==
--- NOTE | ~2023-05-20 | US_ITS ---
EXAMINATION: US LOWER EXTREMITY VENOUS (REFLUX EXAM), BILATERAL CLINICAL INDICATION: Varicose veins COMPARISON: Left lower extremity duplex on 02/27/2023 TECHNIQUE: Color flow triplex imaging and compression Doppler was performed to evaluate both the deep and the superficial systems bilaterally. To evaluate the superficial system, the examination was performed in the upright position. Color-flow Doppler ultrasound and compression ultrasound were utilized. In addition, maneuvers were utilized to demonstrate reflux. FINDINGS: 1. DEEP VENOUS ULTRASOUND OF THE RIGHT LOWER EXTREMITY: Common Femoral Vein: Compressible, normal respiratory variation and augmented flow. Femoral Vein: Compressible, normal color flow and augmentation. Popliteal Vein: Compressible, normal augmentation. Deep Reflux: There is no evidence of reflux in the deep system in either the common femoral vein or the popliteal vein. There is no evidence of a Regalado's cyst. 2. SUPERFICIAL ULTRASOUND WITH DOPPLER OF RIGHT LOWER EXTREMITY: GREAT SAPHENOUS VEIN: Saphenofemoral Junction: 0.6 cm; Reflux: 0 ms Proximal Thigh: 0.5 cm; Reflux: 0 ms Mid Thigh: 0.3 cm; Reflux: 2272 ms Above Knee: 0.2 cm; Reflux: 2284 ms At Knee: 0.7 cm; Reflux: 2684 ms Below Knee: 0.7 cm; Reflux: 2708 ms Mid Calf: 0.2 cm; Reflux: 2660 ms Ankle: 0.2 cm; Reflux: 1364 ms DUPLICATED MEDIAL GREAT SAPHENOUS VEIN: Proximal: 0.5 cm; Reflux: 0 ms Distal: 0.2 cm; Reflux: 1584 ms DUPLICATED LATERAL GREAT SAPHENOUS VEIN: Diameter: None imaged Reflux: NA SMALL SAPHENOUS VEIN: Proximal: 0.2 cm; Reflux: 0 ms Distal: 0.1 cm; Reflux: 0 ms VEIN OF GIACOMINI: Size: NA Reflux: NA PERFORATORS: Location: [place] Size: 0.1 cm Reflux: NA VARICOSITIES: Location: Numerous varicosities throughout the lower extremity Size: 0.4-0.6cm Reflux: 2288-2696ms 3. DEEP VENOUS ULTRASOUND OF THE LEFT LOWER EXTREMITY: Common Femoral Vein: Compressible, normal respiratory variation and augmented flow. Femoral Vein: Compressible, normal color flow and augmentation. Popliteal Vein: Compressible, normal augmentation. Deep Reflux: There is reflux (872ms) in the left common femoral vein. There is no evidence of a Regalado's cyst. 4. SUPERFICIAL ULTRASOUND WITH DOPPLER OF LEFT LOWER EXTREMITY: GREAT SAPHENOUS VEIN: Saphenofemoral Junction: 0.8 cm; Reflux: 2756 ms Proximal Thigh: 1.1 cm; Reflux: 2316 ms Mid Thigh: 0.8 cm; Reflux: 2452 ms Above Knee: 0.9 cm; Reflux: 2136 ms At Knee: 0.8 cm; Reflux: 2356 ms Below Knee: 0.8 cm; Reflux: 2492 ms Mid Calf: 0.3 cm; Reflux: 876 ms Ankle: 0.3 cm; Reflux: 0 ms DUPLICATED MEDIAL GREAT SAPHENOUS VEIN: Proximal: 0.3 cm; Reflux: 0 ms Distal: 0.1 m; Reflux: 0 ms DUPLICATED LATERAL GREAT SAPHENOUS VEIN: Diameter: None imaged Reflux: NA SMALL SAPHENOUS VEIN: Proximal: 0.2 cm; Reflux: 0 ms Distal: 0.2 cm; Reflux: 0 ms VEIN OF GIACOMINI: Size: NA Reflux: NA PERFORATORS: Location: Multiple perforators throughout the calf Size: 0.2-0.4cm Reflux: NA VARICOSITIES: Location: Numerous varicosities throughout the lower extremity Size: 0.3-0.6cm Reflux: 2000-2616ms US/US venous duplex LE BI IMPRESSION: 1. Bilateral GSV of the severe reflux. 2. Multiple varicosities and perforators throughout the bilateral lower extremities. 3. Deep reflux in the left common femoral vein.
== END 2023-05-20 10:25 | disposition home or self-care (01) ==
LOC: HO.US 10:24
PROVIDERS: PCP Internal Medicine; Visit Provider Surgery Vascular Surgery
DX: I83.12 Varicose veins of left lower extremity with inflammation (principal)
CPT/HCPCS: 93970

== ENCOUNTER 2023-06-27 08:48 | Outpatient (AMB) | payer OTHER, SELFPAY ==
--- NOTE | 2023-06-27 08:55 | MHC.OFFVIS ---
Intake Vital Signs 06/27/23 08:56 Height 5 ft 2 in Weight 169 lb BMI 30.9 Intake Visit Reasons: follow up s/p US 05/20/23 Intake Note: follow up US 05/20/23 for bilateral VV w/ Left LE worse than the right LE. Pt states pain, cramping and toe discoloration bilateral LE. 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 She has significant swelling and discomfort of bilateral lower extremities left more so than right. She does have some large varicosities as well. 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 She now presents for follow-up evaluation with venous insufficiency testing. Of note she has been compliant with compression stockings with minimal relief. [facility] Medical History Class 1 obesity with body mass index (BMI) of 32.0 to 32.9 in adult COVID-19 Migraines Surgical History History of cholecystectomy Hx of cosmetic plastic surgery Hx of tubal ligation Family History Father Diabetes mellitus Hypertension Social History Housing: Apartment Alcohol intake: never Patient Tobacco Use Status: Never used Tobacco e-Cigarette/Vaping Use: Never Used Second Hand Smoke Exposure: No service: No Current occupational status: employed Current occupational exposures/hazards: No Cognitive needs: Yes Hearing needs: No Vision needs: No Female Reproductive History Menstrual Age of Menarche: 10 Review of Systems Const Reports as per HPI ENT Reports no additional complaints Card Denies chest pain, Denies chest pain at rest and Denies chest pain with activity Resp Denies chest congestion and Denies cough GI Reports no additional complaints Musc Details: pain over varicosities, aching of lower extremities, swelling, cramping, heaviness and tiredness, itching Denies abnormal gait Skin/Breast Reports pruritus and Denies wounds Neuro Reports no additional complaints and Denies abnormal gait Psych Denies no additional complaints Physical Exam Vital Signs: BMI result Body Mass Index 30.9 Const General: cooperative, healthy appearing and comfortable Orientation/consciousness: oriented to person, oriented to place and oriented to time Neck Carotids: no bruits Chest Chest palpation & inspection: normal inspection of the chest and normal palpation of entire chest wall Resp Effort & Inspection: normal respiratory effort and able to speak in complete sentences Cardio Rate: regular rate Heart sounds: S1 normal heart sound present and S2 normal heart sound present Peripheral pulses: Peripheral pulses 2+ throughout GI Inspection: Yes normal to inspection Skin Other: +2 edema, large rope-like varicosities greater than 4 mm left medial thigh and calf CEAP Classification C4 - skin color changes Ep - Etiology Primary As - superficial veins P - reflux General skin exam: dry skin Neuro General: oriented to person, oriented to place and oriented to time Extrem Right lower extremity: full ROM, normal capillary refill and edema Left lower extremity: full ROM, normal capillary refill and edema Psych Mental Status: mental status grossly normal Results Reviewed Results Reviewed: Brief summary of venous insufficiency testing is as follows: right great saphenous vein: Positive right small saphenous vein: negative right accessory vein: none present left great saphenous vein: Positive left small saphenous vein: negative left accessory vein: none present Please note there is no evidence of any venous aneurysms or significant tortuosity Assessment & Plan Assessment & Plan (1) Varicose veins of left lower extremity with inflammation: Code(s): I83.12 - Varicose veins of left lower extremity with inflammation Plan: This patient has varicose veins with inflammation. They continue to be a source of discomfort for the patient. The patient has tried conservative treatment with compression, leg elevation and exercise program for over 3 months time. They have been compliant with all treatment. This has provided minimal relief for the patient. I do not anticipate this course of treatment will alter the underlying etiology. The patient has been scheduled for lower extremity venous treatment inclusive of --- left great saphenous vein radiofrequency ablation. Risks, benefits, and complications of this procedure has been discussed in detail with the patient including but not limited to bleeding, infection, and the development of a DVT. The patient has demonstrated a clear understanding and has consented. We will schedule the patient as soon as possible. Thank you for allowing us to participate in this patient's care. If there are any questions or concerns please do not hesitate to contact us. Coding Level of Care Code Est Pt Level 4 (93298) Diagnoses Varicose veins of left lower extremity with inflammation I83.12
[2023-06-27 08:56] VITALS: BMI 30.9
== END 2023-06-27 09:21 | disposition home or self-care (01) ==
PROVIDERS: PCP Internal Medicine; Visit Provider Surgery Vascular Surgery
DX: I83.12 Varicose veins of left lower extremity with inflammation (principal)
CPT/HCPCS: 99214

== ENCOUNTER → 2023-06-27 08:48 | Outpatient (BNVA) | payer OTHER, SELFPAY | PROVIDERS: PCP Internal Medicine; Visit Provider Surgery Vascular Surgery | DX: I83.12 Varicose veins of left lower extremity with inflammation (principal) | CPT/HCPCS: 99212 ==

== ENCOUNTER 2023-07-19 08:23 | Outpatient (AMB) | payer OTHER, SELFPAY ==
[2023-07-19 09:27] VITALS: BMI 30.9
--- NOTE | 2023-07-19 09:27 | MHC.OFFVIS ---
Intake Vital Signs 07/19/23 09:27 Height 5 ft 2 in Weight 169 lb BMI 30.9 Intake Visit Reasons: Left GSV RFA Allergies sumatriptan [From Imitrex] Adverse Reaction (Severe, Verified 06/27/23 08:58) palpitations, arm numbness PFSH Medical History Class 1 obesity with body mass index (BMI) of 32.0 to 32.9 in adult COVID-19 Migraines Surgical History History of cholecystectomy Hx of cosmetic plastic surgery Hx of tubal ligation Family History Father Diabetes mellitus Hypertension Social History Housing: Apartment Alcohol intake: never Patient Tobacco Use Status: Never used Tobacco e-Cigarette/Vaping Use: Never Used Second Hand Smoke Exposure: No service: No Current occupational status: employed Current occupational exposures/hazards: No Cognitive needs: Yes Hearing needs: No Vision needs: No Female Reproductive History Menstrual Age of Menarche: 10 Physical Exam Vital Signs: BMI result Body Mass Index 30.9 Office Procedures Vascular Office Procedure Details Details: Diagnosis: Varicose veins with inflammation of left leg Procedure: Endovenous radiofrequency ablation of the left great saphenous vein(s) of the lower extremity. Anesthesia: Local infiltration 5 cc, Tumescent 400 cc. Estimated Blood Loss: Minimal Specimen: Varicose veins The patient was transferred to the procedure suite and the insufficient saphenous vein was mapped by ultrasound and diagrammed on the overlying skin. The depth and diameter of the vein(s) to be treated was documented. The varicose tributary veins and suitable access sites were identified and mapped as well. The patient was then positioned supine on the procedure table. The affected limb was prepped and draped in the usual sterile fashion. The RF catheter was placed on the sterile field, flushed and wiped down, prepared, and connected by a sterile cable. The patient was placed in reverse- Trendelenburg position and local anesthesia was instilled in the skin overlying the access site. A skin incision was made overlying the identified and mapped great saphenous vein entry site. The vein was accessed using ultrasound guidance and the Seldinger technique, a guide wire was introduced through the needle, which was then exchanged over the guide wire for a 7F sheath, which was secured in place. The guide wire was removed and the sheath was flushed. The RF catheter was placed into the vein through the sheath and preferentially, imaging was used to place the catheter tip just inferior to the superficial epigastric vein to preserve normal physiological flow in that vein. Additionally, it was confirmed by ultrasound guidance that the catheter tip was also placed a minimum of 1.5cm distal to the saphenofemoral junction. After the RF catheter position was verified by ultrasound, tumescent anesthesia was infiltrated, under ultrasound guidance, precisely into the perivenous compartment along the entire length of vein from the entry site to the saphenofemoral junction until a halo of fluid was noted around the vein. The patient was then placed in Trendelenburg position to further exsanguinate the superficial venous system. After RF catheter position was again confirmed with ultrasound imaging, and under direct external compression along the length of the heating element, RF energy was applied. The vein was segmentally ablated by heating a 7 cm segment and then indexing the catheter forward by 6.5 cm until the treatment length is completed. Device temperature was maintained at 120 plus or minus 5 degrees C with an initial power level of 40W dropping to below 20W for each treatment. Total vein length treated 42 cm Total cycles of RF 8. Repeat ultrasound of the saphenous vein was performed, confirming successful treatment. The catheter and sheath were withdrawn and hemostasis established with direct pressure. After assuring hemostasis, the skin incision over the saphenous vein was closed with a bandage and a compression wrap, and/ or graduated compression stocking was applied from the level of the foot to the most proximal level of the thigh. 62691 - Endovenous RF, 1st Vein All charges added?: Procedure code (CPT) selection complete Coding Level of Care Code Procedure Only Diagnoses CPT Codes Details - Vascular 1: 88292 - Endovenous RF, 1st Vein ([id number])
== END 2023-07-19 10:15 | disposition home or self-care (01) ==
PROVIDERS: PCP Internal Medicine; Visit Provider Surgery Vascular Surgery
DX: I83.12 Varicose veins of left lower extremity with inflammation (principal)
CPT/HCPCS: 36475

== ENCOUNTER → 2023-07-19 08:23 | Outpatient (BNVA) | payer OTHER, SELFPAY | PROVIDERS: PCP Internal Medicine; Visit Provider Surgery Vascular Surgery | DX: I83.12 Varicose veins of left lower extremity with inflammation (principal) | CPT/HCPCS: 36475 ==

== ENCOUNTER 2023-07-22 12:26 | Outpatient (REF) | payer OTHER, SELFPAY ==
--- NOTE | ~2023-07-22 | US_ITS ---
EXAMINATION: TRIPLEX SCANNING OF LEFT LOWER EXTREMITY; SUPERFICIAL ULTRASOUND WITH DOPPLER OF LEFTLOWER EXTREMITY CLINICAL INFORMATION: Status post RF ablation of the left great saphenous vein. Originally performed on 07/19/2023. COMPARISON: 05/20/2023. TECHNIQUE: Color flow triplex imaging and compression Doppler were performed as well as superficial ultrasound with Doppler. FINDINGS: TRIPLEX SCANNING OF LEFT LOWER EXTREMITY: Respiratory variation, normal compression and augmented flow are noted throughout the lower extremity. The visualized common femoral vein, femoral vein, profunda femoral vein, popliteal vein and the calf veins show no evidence of deep venous thrombosis. There is no evidence of Regalado's cyst. SUPERFICIAL ULTRASOUND WITH DOPPLER OF the cavernous left LOWER EXTREMITY: The left great saphenous vein is occluded from the access site to 4.4 cm before the sapheno-femoral junction. There is no extension of thrombus into the deep system. Residual dilated subcutaneous varicosities seen in the medial calf measuring 5 mm in diameter US/US venous duplex LE LT IMPRESSION: 1. Normal triplex scan of the right without evidence of deep venous thrombosis. 2. Excellent appearance status post ablation of the right great saphenous vein. 3. Residual patent varicose veins in the medial calf
== END 2023-07-22 12:27 | disposition home or self-care (01) ==
LOC: HO.US 12:26
PROVIDERS: PCP Internal Medicine; Visit Provider Surgery Vascular Surgery
DX: M79.605 Pain in left leg (principal)
CPT/HCPCS: 93971

== ENCOUNTER 2023-08-01 08:49 | Outpatient (AMB) | payer OTHER, SELFPAY ==
--- NOTE | 2023-08-01 08:53 | MHC.OFFVIS ---
Intake Vital Signs 08/01/23 08:55 Height 5 ft 2 in Weight 169 lb BMI 30.9 Intake Visit Reasons: 2 week follow up Left GSV RFA 07/19/23 Intake Note: 2 week follow up Left GSV RFA 07/19/23, pt states she has pain in the treated leg and also large VV in the other leg. 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 She reports in general it appears to be doing extremely well. Pain and discomfort appear to be well controlled. She does have some mild postprocedure phlebitis. But in general appears to be doing relatively well. She is now concerned about her right lower extremity. 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 She has been compliant with compression which have provided minimal relief. [facility] Medical History Class 1 obesity with body mass index (BMI) of 32.0 to 32.9 in adult Migraines COVID-19 Surgical History Hx of tubal ligation Hx of cosmetic plastic surgery History of cholecystectomy Family History Father Diabetes mellitus Hypertension Social History Housing: Apartment Alcohol intake: never Patient Tobacco Use Status: Never used Tobacco e-Cigarette/Vaping Use: Never Used Second Hand Smoke Exposure: No service: No Current occupational status: employed Current occupational exposures/hazards: No Cognitive needs: Yes Hearing needs: No Vision needs: No Female Reproductive History Menstrual Age of Menarche: 10 Review of Systems Const Reports as per HPI ENT Reports no additional complaints Card Denies chest pain, Denies chest pain at rest and Denies chest pain with activity Resp Denies chest congestion and Denies cough GI Reports no additional complaints Musc Details: pain over varicosities, aching of lower extremities, swelling, cramping, heaviness and tiredness, itching Denies abnormal gait Skin/Breast Reports pruritus and Denies wounds Neuro Reports no additional complaints and Denies abnormal gait Psych Denies no additional complaints Physical Exam Vital Signs: BMI result Body Mass Index 30.9 Const General: cooperative, healthy appearing and comfortable Orientation/consciousness: oriented to person, oriented to place and oriented to time Neck Carotids: no bruits Chest Chest palpation & inspection: normal inspection of the chest and normal palpation of entire chest wall Resp Effort & Inspection: normal respiratory effort and able to speak in complete sentences Cardio Rate: regular rate Heart sounds: S1 normal heart sound present and S2 normal heart sound present Peripheral pulses: Peripheral pulses 2+ throughout GI Inspection: Yes normal to inspection Skin Other: +2 edema, large rope-like varicosities greater than 4 mm bilateral calf CEAP Classification C4 - skin color changes Ep - Etiology Primary As - superficial veins P - reflux General skin exam: dry skin Neuro General: oriented to person, oriented to place and oriented to time Extrem Right lower extremity: full ROM, normal capillary refill and edema Left lower extremity: full ROM, normal capillary refill and edema Psych Mental Status: mental status grossly normal Results Reviewed Results Reviewed: Brief summary of venous insufficiency testing is as follows: right great saphenous vein: Positive right small saphenous vein: negative right accessory vein: none present left great saphenous vein: Ablated left small saphenous vein: negative left accessory vein: none present Please note there is no evidence of any venous aneurysms or significant tortuosity Assessment & Plan Assessment & Plan (1) Varicose veins of right lower extremity with inflammation: Code(s): I83.11 - Varicose veins of right lower extremity with inflammation Plan: This patient has varicose veins with inflammation. They continue to be a source of discomfort for the patient. The patient has tried conservative treatment with compression, leg elevation and exercise program for over 3 months time. They have been compliant with all treatment. This has provided minimal relief for the patient. I do not anticipate this course of treatment will alter the underlying etiology. The patient has been scheduled for lower extremity venous treatment inclusive of --- right great saphenous vein Cyanoacralate ablation. Risks, benefits, and complications of this procedure has been discussed in detail with the patient including but not limited to bleeding, infection, and the development of a DVT. The patient has demonstrated a clear understanding and has consented. We will schedule the patient as soon as possible. Thank you for allowing us to participate in this patient's care. If there are any questions or concerns please do not hesitate to contact us. (2) Varicose veins of left lower extremity with inflammation: Comment: 07/19/2023 - left GSV Radiofrequency ablation Code(s): I83.12 - Varicose veins of left lower extremity with inflammation Coding Level of Care Code Est Pt Level 4 (38534) Diagnoses Varicose veins of right lower extremity with inflammation I83.11 Varicose veins of left lower extremity with inflammation I83.12
[2023-08-01 08:55] VITALS: BMI 30.9
== END 2023-08-01 09:40 | disposition home or self-care (01) ==
PROVIDERS: PCP Internal Medicine; Visit Provider Surgery Vascular Surgery
DX: I83.11 Varicose veins of right lower extremity with inflammation (principal); I83.12 Varicose veins of left lower extremity with inflammation
CPT/HCPCS: 99214

== ENCOUNTER → 2023-08-01 08:49 | Outpatient (BNVA) | payer OTHER, SELFPAY | PROVIDERS: PCP Internal Medicine; Visit Provider Surgery Vascular Surgery | DX: I83.11 Varicose veins of right lower extremity with inflammation (principal); I83.12 Varicose veins of left lower extremity with inflammation | CPT/HCPCS: 99212 ==

== ENCOUNTER 2023-08-23 07:32 | Outpatient (AMB) | payer OTHER, SELFPAY ==
[2023-08-23 07:37] VITALS: BMI 30.9
--- NOTE | 2023-08-23 07:37 | MHC.OFFVIS ---
Intake Vital Signs 08/23/23 07:37 Height 5 ft 2 in Weight 169 lb BMI 30.9 Intake Visit Reasons: Right GSV Venaseal Allergies sumatriptan [From Imitrex] Adverse Reaction (Severe, Verified 08/23/23 07:37) palpitations, arm numbness PFSH Medical History Class 1 obesity with body mass index (BMI) of 32.0 to 32.9 in adult Migraines COVID-19 Surgical History Hx of tubal ligation Hx of cosmetic plastic surgery History of cholecystectomy Family History Father Diabetes mellitus Hypertension Social History Housing: Apartment Alcohol intake: never Patient Tobacco Use Status: Never used Tobacco e-Cigarette/Vaping Use: Never Used Second Hand Smoke Exposure: No service: No Current occupational status: employed Current occupational exposures/hazards: No Cognitive needs: Yes Hearing needs: No Vision needs: No Female Reproductive History Menstrual Age of Menarche: 10 Physical Exam Vital Signs: BMI result Body Mass Index 30.9 Office Procedures Vascular Office Procedure Details Details: Diagnosis: Right Leg varicose veins with inflammation Procedure: Endovenous Ablation of the right Great Saphenous Vein with VenaSeal Closure System Anesthesia: Local infiltration 5 cc, Estimated Blood Loss: min Specimen: none Duplex ultrasound was used to map out the insufficient saphenous vein, and access was determined and marked on the overlying skin. The depth and diameter of the vein(s) to be treated was documented. The patient was placed supine on the procedure table and the leg was prepped and draped using sterile technique. Ultasound guidance was again used to localize the access site. 1% lidocaine was injected as a local anesthetic in the subcutaneous tissues at the target location in the GSV in the lower leg. Using ultrasound guidance, access was gained at this location with the 19 gauge thin walled access needle and followed by introduction of a short guidewire, location confirmed with ultrasound. A small, 3 mm incision was made at the access site to allow for introduction and placement of the 7 Fr x7cm introducer/dilator. The dilator and guidewire were removed. The 0.035 guidewire from the VenaSeal kit was then introduced and positioned at the saphenofemoral junction using ultrasound guidance. The 80 cm 7 Fr introducer sheath/dilator was positioned 5cm from the saphenofemoral junction. The guidewire and dilator were removed, and the remaining sheath was flushed with sterile saline, with the syringe remaining in place prior to the next steps. The cyanoacrylate adhesive was precisely primed into the 5 F delivery catheter and this catheter/syringe combination was attached within the dispenser gun. This assembly was introduced through the 7F sheath and positioned 5 cm caudal of the saphenofemoral junction under ultrasound guidance. The steps from the IFU were followed for dispensing amounts, locations and compression times, 2 aliquots proximally with 3 minutes of compression, and 1 aliquot every 3 cm distally with 30 sec of compression along the course of the vessel. Following the last injection and compression sequence, the catheter and introducer sheath were pulled out from the access site. Hemostasis was achieved with manual compression and an adhesive bandage was applied to the incision. Ultrasound confirmed complete coaptation and closure of the treated segments of the GSV, and the absence of any DVT at the saphenofemoral junction. Treatment time was approximately 7 minutes and the vein length treated was 40 cm. The drapes were removed and the patient cleaned and prepared for discharge. Post op ultrasound check is scheduled for 48-72 hours and the patient was given written post-op instructions. 69871 - Endoven Ther Chem Adhes 1st All charges added?: Procedure code (CPT) selection complete Coding Level of Care Code Procedure Only CPT Codes Details - Vascular 3: 74330 - Endoven Ther Chem Adhes 1st ([id number])
== END 2023-08-23 08:26 | disposition home or self-care (01) ==
PROVIDERS: PCP Internal Medicine; Visit Provider Surgery Vascular Surgery
DX: I83.11 Varicose veins of right lower extremity with inflammation (principal)
CPT/HCPCS: 36482

== ENCOUNTER → 2023-08-23 07:32 | Outpatient (BNVA) | payer OTHER, SELFPAY | PROVIDERS: PCP Internal Medicine; Visit Provider Surgery Vascular Surgery | DX: I83.11 Varicose veins of right lower extremity with inflammation (principal) | CPT/HCPCS: 36482 ==

== ENCOUNTER 2023-08-26 14:25 | Outpatient (REF) | payer OTHER, SELFPAY ==
--- NOTE | ~2023-08-26 | US_ITS ---
EXAMINATION: US VENOUS ULTRASOUND WITH DOPPLER LOWER EXTREMITY, RIGHT CLINICAL INFORMATION: Pain in right leg. Right GSV Venaseal 08/23/2023. Evaluate for DVT. COMPARISON: Preoperative study 05/20/2023. TECHNIQUE: Ultrasound of the deep veins is performed from the hip to the calf with compression sonography and color and pulse Doppler assessment. Spectral analysis with color-flow imaging is performed. FINDINGS: There is normal venous compression and respiratory variation and augmented flow. The visualized common femoral vein, superficial femoral vein, profunda femoral vein, popliteal vein, and the trifurcation region shows no evidence of deep venous thrombosis. There is no significant popliteal fossa cyst. The great saphenous vein is occluded 1.3 cm below the saphenofemoral junction. US/US venous duplex LE RT IMPRESSION: The right great saphenous vein is occluded 1.3 cm below the saphenofemoral junction. No evidence of DVT.
== END 2023-08-26 14:26 | disposition home or self-care (01) ==
LOC: HO.HMGCX 14:25
PROVIDERS: PCP Internal Medicine; Visit Provider Surgery Vascular Surgery
DX: M79.604 Pain in right leg (principal)
CPT/HCPCS: 93971

== ENCOUNTER 2023-09-05 08:45 | Outpatient (AMB) | payer OTHER, SELFPAY ==
--- NOTE | 2023-09-05 08:53 | A.OFFVIS_ITS ---
Intake Vital Signs 09/05/23 08:56 Height 5 ft 2 in Weight 169 lb BMI 30.9 Intake Visit Reasons: 2 week follow up Right GSV Venaseal 08/23/23 Intake Note: Pt here for a GSV Venaseal on 08/23/23 and a hx of RFA 07/19/23 Pt says she is doing okand has no oain at the moment she does say she has a VV on her right leg that she would like to get looked at Supervisor [employer] Required: Yes Supervisor [employer] Production Name: isma jovel Allergies sumatriptan [From Imitrex] Adverse Reaction (Severe, Verified 09/05/23 08:56) palpitations, arm numbness HPI 2 week follow up Right GSV Venaseal 08/23/23 HPI Details Very pleasant 33-year-old female presents for follow-up status post right great Cyanoacralate ablation. She complains of some itching and discomfort at that site. In general she does note that the swelling has decreased in that right leg. [facility] Medical History Class 1 obesity with body mass index (BMI) of 32.0 to 32.9 in adult Migraines COVID-19 Surgical History Hx of tubal ligation Hx of cosmetic plastic surgery History of cholecystectomy Family History Father Diabetes mellitus Hypertension Social History Housing: Apartment Alcohol intake: never Patient Tobacco Use Status: Never used Tobacco e-Cigarette/Vaping Use: Never Used Second Hand Smoke Exposure: No service: No Current occupational status: employed Current occupational exposures/hazards: No Cognitive needs: Yes Hearing needs: No Vision needs: No Female Reproductive History Menstrual Age of Menarche: 10 Review of Systems Const All systems reviewed & are unremarkable except as noted in HPI and below Reports no additional complaints ENT Reports Normal hearing present Card Denies chest pain, Denies chest pain at rest, Denies chest pain with activity and Denies pedal edema Resp Denies cough GI Denies abdominal pain Musc Denies abnormal gait, Denies muscle cramps and Denies radiating pain into limb Skin/Breast Denies skin ulcer and Denies wounds Neuro Reports Normal hearing present and Denies abnormal gait Psych Reports no additional complaints Physical Exam Vital Signs: BMI result Body Mass Index 30.9 Const General: cooperative, healthy appearing and comfortable Orientation/consciousness: oriented to person, oriented to place and oriented to time HEENT Head: Yes normal to inspection Neck Neck: Yes normal visual inspection Carotids: no bruits Chest Chest palpation & inspection: normal inspection of the chest Resp Effort & Inspection: normal respiratory effort and able to speak in complete sentences Auscultation: clear to auscultation bilaterally, no crackles, no rales, no rhonchi and no wheezes Cardio Rate: regular rate Rhythm: regular rhythm Heart sounds: S1 normal heart sound present and S2 normal heart sound present Bruits: no carotid bruits Peripheral pulses: Peripheral pulses 2+ throughout GI Inspection: Yes normal to inspection Skin Other: Erythema and excoriated areas in the right medial thigh Wounds: no wounds Hair: normal Neuro General: oriented to person, oriented to place and oriented to time Cranial nerves: Yes CN's II-XII intact bilaterally and Yes Normal hearing present Cognition (Neuro): normal cognition Motor exam (neuro): 5/5 motor strength present throughout Extrem Other: venous exam: No significant superficial varicosities or spider telangiectasias, minimal edema General: No clubbing, No cyanosis and No edema Psych Appearance: grossly normal Mental Status: mental status grossly normal Speech and movement: Normal speech and movement present Assessment & Plan Assessment & Plan (1) Varicose veins of right lower extremity with inflammation: Comment: 08/23/2023 - right great saphenous vein Cyanoacralate ablation Code(s): I83.11 - Varicose veins of right lower extremity with inflammation Plan: In short I am concerned about allergic reaction regarding this Cyanoacralate ablation great saphenous vein ablation. We did discuss use of [id number] Claritin along with Benadryl. Should this persist within the next 24-48 hours she was requested to call our office for a Medrol Dosepak. We will see her back within the next 2-3 weeks to ensure that this is progressing in the right direction. Thank you for allowing us to assist in her care. (2) Varicose veins of left lower extremity with inflammation: Comment: 07/19/2023 - left GSV Radiofrequency ablation Code(s): I83.12 - Varicose veins of left lower extremity with inflammation Coding Level of Care Code Est Pt Level 3 (55252) Diagnoses Varicose veins of right lower extremity with inflammation I83.11 Varicose veins of left lower extremity with inflammation I83.12
[2023-09-05 08:56] VITALS: BMI 30.9
== END 2023-09-05 09:46 | disposition home or self-care (01) ==
PROVIDERS: PCP Internal Medicine; Visit Provider Surgery Vascular Surgery
DX: I83.11 Varicose veins of right lower extremity with inflammation (principal); I83.12 Varicose veins of left lower extremity with inflammation
CPT/HCPCS: 99213

== ENCOUNTER → 2023-09-05 08:45 | Outpatient (BNVA) | payer OTHER, SELFPAY | PROVIDERS: PCP Internal Medicine; Visit Provider Surgery Vascular Surgery | DX: I83.11 Varicose veins of right lower extremity with inflammation (principal); I83.12 Varicose veins of left lower extremity with inflammation | CPT/HCPCS: 99212 ==

== ENCOUNTER 2023-11-28 10:03 | Outpatient (AMB) | payer OTHER, SELFPAY ==
[2023-11-28 10:06] VITALS: BP 106/74; PULSE 82; O2SAT 97; BMI 30.9
--- NOTE | 2023-11-28 10:06 | MHC.OFFVIS ---
Intake Vital Signs 11/28/23 10:06 Height 5 ft 2 in Weight 169 lb BMI 30.9 BP 106/74 Blood Pressure Location Rt brachial Position Sitting Pulse 82 Pulse Source Pulse Oximeter Pulse Oximetry (%) 97 Oxygen Delivery Method Room Air Intake Visit Reasons: Leg Check Intake Note: Pt presents to the office today for a leg check. Pt states she is feeling well and denies any pain or swelling at this time. 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 She had undergone right great saphenous vein Cyanoacralate ablation. She did have a postprocedure reaction which appears to have subsided. She states that her leg feels well. Both legs have decreased in swelling and discomfort. She does have large varicosities on bilateral lower extremities left more so than right which do cause her a source of problems. She now presents routine venous follow-up and check. [facility] Medical History Class 1 obesity with body mass index (BMI) of 32.0 to 32.9 in adult Migraines COVID-19 Surgical History Hx of tubal ligation Hx of cosmetic plastic surgery History of cholecystectomy Family History Father Diabetes mellitus Hypertension Social History Housing: Apartment Alcohol intake: never Patient Tobacco Use Status: Never used Tobacco e-Cigarette/Vaping Use: Never Used Second Hand Smoke Exposure: No service: No Current occupational status: employed Current occupational exposures/hazards: No Cognitive needs: Yes Hearing needs: No Vision needs: No Female Reproductive History Menstrual Age of Menarche: 10 Review of Systems Const Reports as per HPI ENT Reports no additional complaints Card Denies chest pain, Denies chest pain at rest and Denies chest pain with activity Resp Denies chest congestion and Denies cough GI Reports no additional complaints Musc Details: pain over varicosities, aching of lower extremities, swelling, cramping, heaviness and tiredness, itching Denies abnormal gait Skin/Breast Reports pruritus and Denies wounds Neuro Reports no additional complaints and Denies abnormal gait Psych Denies no additional complaints Physical Exam Vital Signs: Last Vital Signs Pulse 82 11/28/23 10:06 BP 106/74 11/28/23 10:06 Pulse Ox 97 11/28/23 10:06 Oxygen Delivery Method Room Air 11/28/23 10:06 BMI result Body Mass Index 30.9 Const General: cooperative, healthy appearing and comfortable Orientation/consciousness: oriented to person, oriented to place and oriented to time Neck Carotids: no bruits Chest Chest palpation & inspection: normal inspection of the chest and normal palpation of entire chest wall Resp Effort & Inspection: normal respiratory effort and able to speak in complete sentences Cardio Rate: regular rate Heart sounds: S1 normal heart sound present and S2 normal heart sound present Peripheral pulses: Peripheral pulses 2+ throughout GI Inspection: Yes normal to inspection Skin Other: +2 edema, large rope-like varicosities greater than 4 mm left medial and lateral calf CEAP Classification C4 - skin color changes Ep - Etiology Primary As - superficial veins P - reflux General skin exam: dry skin Neuro General: oriented to person, oriented to place and oriented to time Extrem Right lower extremity: full ROM, normal capillary refill and edema Left lower extremity: full ROM, normal capillary refill and edema Psych Mental Status: mental status grossly normal Assessment & Plan Assessment & Plan (1) Varicose veins of left lower extremity with inflammation: Comment: 07/19/2023 - left GSV Radiofrequency ablation Code(s): I83.12 - Varicose veins of left lower extremity with inflammation Plan: This patient has varicose veins with inflammation. They continue to be a source of discomfort for the patient. The patient has tried conservative treatment with compression, leg elevation and exercise program for over 3 months time. They have been compliant with all treatment. This has provided minimal relief for the patient. I do not anticipate this course of treatment will alter the underlying etiology. The patient has been scheduled for lower extremity venous treatment inclusive of --- left leg microphlebectomy. Risks, benefits, and complications of this procedure has been discussed in detail with the patient including but not limited to bleeding, infection, and the development of a DVT. The patient has demonstrated a clear understanding and has consented. We will schedule the patient as soon as possible. Thank you for allowing us to participate in this patient's care. If there are any questions or concerns please do not hesitate to contact us. (2) Varicose veins of right lower extremity with inflammation: Comment: 08/23/2023 - right great saphenous vein Cyanoacralate ablation Code(s): I83.11 - Varicose veins of right lower extremity with inflammation Plan: Will treat right lower extremity pretibial varicosities at a future date Coding Level of Care Code Est Pt Level 3 (68149) Diagnoses Varicose veins of left lower extremity with inflammation I83.12 Varicose veins of right lower extremity with inflammation I83.11
== END 2023-11-28 10:28 | disposition home or self-care (01) ==
PROVIDERS: PCP Internal Medicine; Visit Provider Surgery Vascular Surgery
DX: I83.12 Varicose veins of left lower extremity with inflammation (principal); I83.11 Varicose veins of right lower extremity with inflammation
CPT/HCPCS: 99213

== ENCOUNTER → 2023-11-28 10:03 | Outpatient (BNVA) | payer OTHER, SELFPAY | PROVIDERS: PCP Internal Medicine; Visit Provider Surgery Vascular Surgery | DX: I83.12 Varicose veins of left lower extremity with inflammation (principal); I83.11 Varicose veins of right lower extremity with inflammation | CPT/HCPCS: 99212 ==

== ENCOUNTER → 2023-12-20 07:27 | Outpatient (BNVA) | payer OTHER, SELFPAY | PROVIDERS: PCP Internal Medicine; Visit Provider Surgery Vascular Surgery | DX: I83.12 Varicose veins of left lower extremity with inflammation (principal) | CPT/HCPCS: 37766 ==

== ENCOUNTER 2023-12-20 07:33 | Outpatient (AMB) | payer OTHER, SELFPAY ==
[2023-12-20 07:33] VITALS: BMI 30.9
--- NOTE | 2023-12-20 07:33 | A.OFFVIS_ITS ---
Intake Vital Signs 12/20/23 07:33 Height 5 ft 2 in Weight 169 lb BMI 30.9 Intake Visit Reasons: Left Leg Micro Allergies sumatriptan [From Imitrex] Adverse Reaction (Severe, Verified 12/20/23 07:34) palpitations, arm numbness PFSH Medical History Class 1 obesity with body mass index (BMI) of 32.0 to 32.9 in adult Migraines COVID-19 Surgical History Hx of tubal ligation Hx of cosmetic plastic surgery History of cholecystectomy Family History Father Diabetes mellitus Hypertension Social History Housing: Apartment Alcohol intake: never Patient Tobacco Use Status: Never used Tobacco e-Cigarette/Vaping Use: Never Used Second Hand Smoke Exposure: No service: No Current occupational status: employed Current occupational exposures/hazards: No Cognitive needs: Yes Hearing needs: No Vision needs: No Female Reproductive History Menstrual Age of Menarche: 10 Physical Exam Vital Signs: BMI result Body Mass Index 30.9 Office Procedures Vascular Office Procedure Details Details: Diagnosis: Left Leg varicose veins with inflammation Procedure: Left leg Microphlebectomy Anesthesia: Local Infiltration 20 cc, Tumescent: 0 cc. Varicose veins were marked in the standing position on the left leg and the patient was then placed in the prone position. The left lower extremity was prepared and draped to allow knee flexion in the sterile field. The patient had large superficial varicose veins with significant symptoms of pain. It was therefore determined to perform microphlebectomies of the clusters of varicose veins. The patient had bulging varicose veins which were previously marked in the standing position. A small stab incision was made longitudinally directly overly ing the varicose vein in the calf and the varicose vein was grasped with a hemostat aided by a vein hook. It was then dissected as far proximally and distally as possible and avulsed. A total of 21 stab incisions were made and the procedure of stab phlebectomies was repeated 21 times. Hemostasis was checked and stab incision sites were closed with steri-strips and sterile dressing was given with gauze and krilex wrap followed by an nadine bandage. There were no complications and blood loss was minimal. Post-Op instructions were given and a follow-up appointment was recommended. 18635 - Stab Phlebectomy >20 All charges added?: Procedure code (CPT) selection complete Assessment & Plan Assessment & Plan (1) Varicose veins of left lower extremity with inflammation: Comment: 07/19/2023 - left GSV Radiofrequency ablation Code(s): I83.12 - Varicose veins of left lower extremity with inflammation Plan: See op note Coding Level of Care Code Procedure Only Diagnoses Varicose veins of left lower extremity with inflammation I83.12 CPT Codes Details - Vascular 6: 43921 - Stab Phlebectomy >20 ([id number])
== END 2023-12-20 09:24 | disposition home or self-care (01) ==
PROVIDERS: PCP Internal Medicine; Visit Provider Surgery Vascular Surgery
DX: I83.12 Varicose veins of left lower extremity with inflammation (principal)
CPT/HCPCS: 37766

== ENCOUNTER 2024-01-07 14:26 | Outpatient (AMB) | payer OTHER, SELFPAY ==
[2024-01-07 14:33] VITALS: BP 122/80; BMI 32.6
--- NOTE | 2024-01-07 14:33 | A.OFFPC_ITS ---
Vital Signs 01/07/24 14:33 Height 5 ft 2 in Weight 178 lb BMI 32.6 BP 122/80 Blood Pressure Location Lt brachial Position Sitting Intake Visit Reasons: pe Intake Note: Patient here for a physical exam Physical Therapy Director Required: No Accompanied by: children Allergies sumatriptan [From Imitrex] Adverse Reaction (Severe, Verified 01/07/24 14:42) palpitations, arm numbness Medication List - Last Reconciled 01/07/24 by Leilani Kimbrough MD No Known Home Meds Tobacco use date assessed: 01/07/24 Dental Screening Dental Screen Date: 01/07/24 Did you have a dental visit in the last 12 months?: Yes Did you have a dental problem in the last 6 months where you did not have access to dental care?: No Was dental information given to patient?: Patient has dentist HPI HPI Comments History of Present Illness Details This is a 33-year-old female that comes for her physical exam. Last Pap smear was last year and was normal. No chest pain or shortness of breath. No change in bowel or bladder habits. [facility] Medical History Class 1 obesity with body mass index (BMI) of 32.0 to 32.9 in adult Migraines COVID-19 Surgical History History of varicose vein stripping Hx of tubal ligation Hx of cosmetic plastic surgery History of cholecystectomy Family History Father Diabetes mellitus Hypertension Mother No problems noted. Social History Housing: Apartment Alcohol intake: never Patient Tobacco Use Status: Never used Tobacco e-Cigarette/Vaping Use: Never Used Second Hand Smoke Exposure: No service: No Current occupational status: employed Current occupational exposures/hazards: No Cognitive needs: Yes Hearing needs: No Vision needs: No Female Reproductive History Menstrual Age of Menarche: 10 Questionnaire PHQ-9 Over the last 2 weeks, how often have you been bothered by any of the following problems? 1. Little interest or pleasure in doing things: not at all 2. Feeling down, depressed, or hopeless: not at all 3. Trouble falling or staying asleep, or sleeping too much: not at all 4. Feeling tired or having little energy: not at all 5. Poor appetite or overeating: not at all 6. Feeling bad about yourself - or that you are a failure or have let yourself or your family down: not at all 7. Trouble concentrating on things, such as reading the newspaper or watching television: not at all 8. Moving or speaking so slowly that other people could have noticed. Or the opposite - being so fidgety or restless that you have been moving around a lot more than usual: not at all 9. Thoughts that you would be better off or of hurting yourself in some way: not at all Total score: 0 Depression Screening Interpretation: Negative Depression Screening Done: Yes 05802 - PHQ-9 Billing: Yes Source: Developed by Drs. Brian Magallanes, Emy Addison, Tyler De Luna and colleagues, with an educational carolina from [employer]. Thrive Questionnaire Date Thrive assessed: 01/07/24 I am a: Patient What is your living situation today?: I have a steady place to live Within the past 12 months, did the food you bought not last and you didn't have the money to get more?: Never true Within the past 12 months, did you worry whether your food would run out before you got money to buy more?: Never true Do you have trouble paying for medicines?: No Do you have trouble getting transportation to medical appointments?: No Do you have trouble paying your heating and electricity bill?: No Do you have trouble taking care of your child, family member or friend?: No Do you have trouble with day-to-day activities such as bathing, preparing meals, shopping, managing finances, etc.?: No Are you currently unemployed and looking for a job?: No Are you interested in more education?: No Please select the resources that you would like help with: None Currently or been in a relationship where the following occur: no concerns reported THRIVE Score: 0 AUDIT C Alcohol Use Questionnaire (AUDIT-C) 1. How often do you have a drink containing alcohol?: Never Total Score: 0 ACTHERINE-7 AMB Questionnaire CATHERINE-7 Date CATHERINE - 7 assessed: 01/07/24 Feeling nervous, anxious, or on edge: 0 = Not at all Not being able to stop or control worryin = Not at all Worrying too much about different things: 0 = Not at all Trouble relaxin = Not at all Being so restless that it is hard to sit still: 0 = Not at all Becoming easily annoyed or irritable: 0 = Not at all Feeling afraid as if something awful might happen: 0 = Not at all Total CATHERINE-7 score (0-4 normal; 5-9 mild; 10-14 moderate; 15-21 severe): 0 Source: Developed by Drs. Brian Magallanes, Emy Addison, Tyler De Luna and colleagues, with an educational carolina from [employer]. CATHERINE-7 Assessment Billing CATHERINE-7 Assessment Tool: CATHERINE-7 Assessment 54405 Review of Systems Const All systems reviewed & are unremarkable except as noted in HPI and below Eyes Reports no additional complaints, Denies change in vision and Denies other visual disturbances Card Denies chest pain at rest, Denies chest pain with activity, Denies edema, Denies irregular heart rhythm, Denies claudication, Denies dyspnea, Denies dyspnea on exertion, Denies orthopnea, Denies paroxysmal nocturnal dyspnea and Denies slow heart rate Resp Denies cough, Denies dyspnea and Denies dyspnea on exertion GI Denies abdominal pain, Denies change in bowel habits, Denies excessive flatus, D enies nausea and Denies vomiting Denies urinary incontinence, Denies urinary hesitancy and Denies urinary urgency Musc Denies abnormal gait, Denies atrophy, Denies deformity and Denies limited range of motion Skin/Breast Denies bleeding lesions, Denies changing lesions and Denies rash Neuro Denies abnormal gait, Denies behavioral changes, Denies confusion and Denies lack of coordination Psych Denies behavioral changes and Denies confusion Physical exam (Primary Care) Vital Signs: Last Vital Signs BP 122/80 01/07/24 14:33 BMI result Body Mass Index 32.6 Tobacco/Smoking Status: Tobacco use Status Tobacco use date assessed 01/07/24 01/07/24 14:38 Patient Tobacco Use Status Never used Tobacco 01/07/24 14:38 e-Cigarette/Vaping Use Never Used 01/07/24 14:38 PHQ-9: PHQ-9 Score PHQ-9: Total score 0 01/07/24 14:39 Depression Screening Interpretation: Negative Thrive Assessment: Date of Thrive Assessment Date Thrive assessed 01/07/24 01/07/24 14:39 Currently or been in a relationship where the following occur: no concerns reported Const General: No confusion Orientation/consciousness: patient oriented x3 and No confusion HENMT Head: Yes normal to inspection, Yes normocephalic and Yes atraumatic Ears: external ears normal Eyes General: appearance normal, both eyes and all related structures Eyelids: Yes eyelids normal Conjunctivae: conjunctivae normal Neck Neck: Yes normal visual inspection and Yes supple Resp Effort & Inspection: normal respiratory effort Auscultation: clear to auscultation bilaterally Cardio Jugular venous distension: no JVD Rate: regular rate Rhythm: regular rhythm Heart sounds: S1 normal heart sound present and S2 normal heart sound present GI Inspection: Yes normal to inspection Palpation (GI): Soft to palpation and nontender Auscultation: normal bowel sounds Skin General skin exam: no rashes or lesions noted Neuro General: patient oriented x3, no focal motor deficits and No confusion Extrem General: Yes full ROM Psych Appearance: grossly normal Assessment and Plan Assessment & Plan (1) Physical exam: Code(s): Z00.00 - Encounter for general adult medical examination without abnormal findings Plan: Repeat in a year. Orders: Orders Lipid Panel Today Z00.00 - Encounter for general adult medical examination without abnormal findings Comprehensive [place]. Panel Fast Today Z00.00 - Encounter for general adult medical examination without abnormal findings Coding Level of Care Code Est Pt Prev Care 18-39y(30110) Diagnoses Physical exam Z00.00 Additional Codes CATHERINE-7 Assessment Billing - CATHERINE-7 Assessment Tool: CATHERINE-7 Assessment 85380 ([id number]) Time Spent (min) 32
== END 2024-01-07 15:01 | disposition home or self-care (01) ==
PROVIDERS: Visit Provider Internal Medicine
DX: Z00.00 Encounter for general adult medical examination without abnormal findings (principal)
CPT/HCPCS: 99395

== ENCOUNTER 2024-01-14 08:59 | Outpatient (REF) | payer OTHER, SELFPAY ==
[2024-01-14 09:10] LABS: MANUAL DIFF FLAG NO
--- NOTE | 2024-01-14 09:17 | ECG_ITS ---
Test Reason : pre op Blood Pressure : / mmHG Vent. Rate : 068 BPM Atrial Rate : 068 BPM P-R Int : 164 ms QRS Dur : 092 ms QT Int : 368 ms P-R-T Axes : 038 014 032 degrees QTc Int : 391 ms Normal sinus rhythm Normal ECG When compared with ECG of 04-DEC-2022 10:34, No significant change was found Referred By: Leilani Kimbrough Electronically Signed By:CHEPE ROMANO MD
[2024-01-14 09:33] LABS: Basophils Absolute Auto 0.1 X10*3/uL (0.0-0.2); Basophils Percent Auto 0.7 % (0-2); Eosinophils Absolute Auto 0.1 X10*3/uL (0.0-0.4); Hematocrit 45.8 % (37.0-47.0); Hemoglobin 14.7 g/dl (12.0-16.0); Imm Gran Abs Auto 0.05 X10*3/uL (0.00-0.03); Imm Gran Pct Auto 0.7 % (0.0-0.4); Lymphocytes Absolute Auto 1.8 X10*3/uL (1.2-4.9); Lymphocytes Percent Auto 24.6 % (20-40); Mean Corpuscular HGB Conc 32.1 g/dl (31.0-35.0); Mean Corpuscular Hemoglobin 27.2 pg (27.0-33.0); Mean Corpuscular Volume 84.8 fL (80.0-98.0); Mean Platelet Volume 10.1 fL (9.4-12.3); Monocytes Absolute Auto 0.4 X10*3/uL (0.1-1.2); Monocytes Percent Auto 4.9 % (2-11); Neutrophils Absolute Auto 4.8 x10*3/uL (2.0-8.3); Neutrophils Percent Auto 67.1 % (45-73); Platelet Count 286 X10*3/uL (160-400); Red Cell Distribution Width 13.4 % (11.0-16.0); White Blood Count 7.1 X10*3/uL (4.8-10.8)
[2024-01-14 09:53] LABS: Alanine Aminotransferase 19 U/L (0-31); Albumin Level 4.7 g/dL (3.5-5.0); Alkaline Phosphatase 59 U/L (39-117); Anion Gap 11 (12-20); Aspartate Amino Transferase 28 U/L (5-31); Bilirubin Total 0.3 mg/dL (0.0-1.0); Blood Urea Nitrogen 16 mg/dL (9-16); Calcium 9.8 mg/dL (8.4-10.2); Carbon Dioxide 29 mmol/L (22-29); Chloride 106 mmol/L (96-108); Cholesterol 202 mg/dL (<200); Estimated Glomerular Filt Rate > 60; Glucose Fasting 94 mg/dL (60-99); HDL Cholesterol 40 mg/dL (>40); LDL Cholesterol Calculated 130 mg/dL (<100); Potassium 4.4 mmol/L (3.3-5.1); Sodium 142 mmol/L (135-145); Total Protein 8.4 g/dL (6.5-8.0); Triglycerides 160 mg/dL (<150)
== END 2024-01-14 09:00 | disposition home or self-care (01) ==
LOC: HO.LAB 08:59
PROVIDERS: PCP Internal Medicine; Visit Provider Internal Medicine
DX: Z00.00 Encounter for general adult medical examination without abnormal findings (principal); D64.9 Anemia, unspecified
CPT/HCPCS: 36415; 80053; 80061; 85025; 93005

== ENCOUNTER → 2024-01-14 09:17 | Outpatient (BNV) | payer OTHER, SELFPAY | PROVIDERS: PCP Internal Medicine; Visit Provider Internal Medicine Cardiovascular Disease | DX: Z01.818 Encounter for other preprocedural examination (principal) | CPT/HCPCS: 93010 ==

== ENCOUNTER 2024-01-16 08:51 | Outpatient (AMB) | payer OTHER, SELFPAY ==
[2024-01-16 08:57] VITALS: BMI 32.6
--- NOTE | 2024-01-16 08:57 | A.OFFVIS_ITS ---
Intake Vital Signs 01/16/24 08:57 Height 5 ft 2 in Weight 178 lb BMI 32.6 Intake Visit Reasons: 1 month follow up micro Intake Note: Patient is here for 1 month follow up s/p left leg micro with history of right gsv venaseal , also had left gsv rfa. States se as no pain , no redness or swelling. Accompanied by: Self / Same As Patient Allergies sumatriptan [From Imitrex] Adverse Reaction (Severe, Verified 01/16/24 08:59) palpitations, arm numbness HPI 1 month follow up micro HPI Details Very pleasant 33-year-old female presents for follow-up status post microphlebectomy. She would also undergone right great saphenous vein Cyanoacralate ablation. She feels that the varicosities have improved. She does have some right pretibial veins that are still present. They do not seem to be a source of discomfort for her at the current time. [facility] Medical History Class 1 obesity with body mass index (BMI) of 32.0 to 32.9 in adult Migraines COVID-19 Surgical History History of varicose vein stripping Hx of tubal ligation Hx of cosmetic plastic surgery History of cholecystectomy Family History Father Diabetes mellitus Hypertension Mother No problems noted. Social History Housing: Apartment Alcohol intake: never Patient Tobacco Use Status: Never used Tobacco e-Cigarette/Vaping Use: Never Used Second Hand Smoke Exposure: No service: No Current occupational status: employed Current occupational exposures/hazards: No Cognitive needs: Yes Hearing needs: No Vision needs: No Female Reproductive History Menstrual Age of Menarche: 10 Review of Systems Const Reports as per HPI ENT Reports no additional complaints Card Denies chest pain, Denies chest pain at rest and Denies chest pain with activity Resp Denies chest congestion and Denies cough GI Reports no additional complaints Musc Details: pain over varicosities, aching of lower extremities, swelling, cramping, heaviness and tiredness, itching Denies abnormal gait Skin/Breast Reports pruritus and Denies wounds Neuro Reports no additional complaints and Denies abnormal gait Psych Denies no additional complaints Physical Exam Vital Signs: BMI result Body Mass Index 32.6 Const General: cooperative, healthy appearing and comfortable Orientation/consciousness: oriented to person, oriented to place and oriented to time Neck Carotids: no bruits Chest Chest palpation & inspection: normal inspection of the chest and normal palpation of entire chest wall Resp Effort & Inspection: normal respiratory effort and able to speak in complete sentences Cardio Rate: regular rate Heart sounds: S1 normal heart sound present and S2 normal heart sound present Peripheral pulses: Peripheral pulses 2+ throughout GI Inspection: Yes normal to inspection Skin Other: +2 edema, large rope-like varicosities greater than 4 mm right pretibial surface CEAP Classification C4 - skin color changes Ep - Etiology Primary As - superficial veins P - reflux General skin exam: dry skin Neuro General: oriented to person, oriented to place and oriented to time Extrem Right lower extremity: full ROM, normal capillary refill and edema Left lower extremity: full ROM, normal capillary refill and edema Psych Mental Status: mental status grossly normal Assessment & Plan Assessment & Plan (1) Varicose veins of left lower extremity with inflammation: Comment: 07/19/2023 - left GSV Radiofrequency ablation 12/20/2023 left leg microphlebectomy Code(s): I83.12 - Varicose veins of left lower extremity with inflammation Plan: See below (2) Varicose veins of right lower extremity with inflammation: Comment: 08/23/2023 - right great saphenous vein Cyanoacralate ablation Code(s): I83.11 - Varicose veins of right lower extremity with inflammation Plan: In short patient has done extremely well status post bilateral great saphenous vein ablation is and left leg microphlebectomy. She does have some right pretibial varicosities. At the current time she would like to manage these conservatively. We did discuss routine conservative measures including compression elevation and exercise. She will follow up with us in approximately 6 months time to see if they need to be removed. Thank you for allowing us to assist in her care. If there are any questions or concerns please do not h esitate to contact us. Coding Level of Care Code Est Pt Level 3 (82605) Diagnoses Varicose veins of left lower extremity with inflammation I83.12 Varicose veins of right lower extremity with inflammation I83.11
== END 2024-01-16 09:41 | disposition home or self-care (01) ==
PROVIDERS: PCP Internal Medicine; Visit Provider Surgery Vascular Surgery
DX: I83.12 Varicose veins of left lower extremity with inflammation (principal); I83.11 Varicose veins of right lower extremity with inflammation
CPT/HCPCS: 99213

== ENCOUNTER → 2024-01-16 08:51 | Outpatient (BNVA) | payer OTHER, SELFPAY | PROVIDERS: PCP Internal Medicine; Visit Provider Surgery Vascular Surgery | DX: I83.12 Varicose veins of left lower extremity with inflammation (principal); I83.11 Varicose veins of right lower extremity with inflammation | CPT/HCPCS: 99212 ==

== ENCOUNTER 2024-02-03 12:12 | Outpatient (AMB) | payer OTHER, SELFPAY ==
[2024-02-03 12:20] VITALS: BP 120/80; BMI 32.7
--- NOTE | 2024-02-03 12:20 | A.OFFPC_ITS ---
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 Required: No Accompanied by: Spouse Allergies sumatriptan [From Imitrex] Adverse Reaction (Severe, Verified 02/03/24 12:29) palpitations, arm numbness Medication List - Last Reconciled 02/03/24 by Leilani Kimbrough MD No Known Home Meds Tobacco use date assessed: 01/07/24 Dental Screening Dental Screen Date: 02/03/24 Did you have a dental visit in the last 12 months?: Yes Did you have a dental problem in the last 6 months where you did not have access to dental care?: No Was dental information given to patient?: Patient has dentist HPI HPI Comments History of Present Illness Details This is 33-year-old female that comes accompanied by for preop evaluation for abdominoplasty scheduled for 03/04/2024. She has a low risk patient going for medium risk surgery. EKG was normal. Still some labs are pending. Has 5-7 Mets of ADLs. She has 0 risk factors by [facility]CR[employer]. [facility] Medical History Class 1 obesity with body mass index (BMI) of 32.0 to 32.9 in adult Migraines COVID-19 Surgical History History of varicose vein stripping Hx of tubal ligation Hx of cosmetic plastic surgery History of cholecystectomy Family History Father Diabetes mellitus Hypertension Mother No problems noted. Social History Housing: Apartment Alcohol intake: never Patient Tobacco Use Status: Never used Tobacco e-Cigarette/Vaping Use: Never Used Second Hand Smoke Exposure: No service: No Current occupational status: employed Current occupational exposures/hazards: No Cognitive needs: Yes Hearing needs: No Vision needs: No Female Reproductive History Menstrual Age of Menarche: 10 Questionnaire Thrive Questionnaire Date Thrive assessed: 01/07/24 CATHERINE-7 AMB Questionnaire CATHERINE-7 Date CATHERINE - 7 assessed: 01/07/24 Source: Developed by Drs. Brian Magallanes, Emy Addison, Tyler De Luna and colleagues, with an educational carolina from [employer]. Review of Systems Const All systems reviewed & are unremarkable except as noted in HPI and below Eyes Reports no additional complaints, Denies change in vision and Denies other visual disturbances Card Denies chest pain at rest, Denies chest pain with activity, Denies edema, Denies irregular heart rhythm, Denies claudication, Denies dyspnea, Denies dyspnea on exertion, Denies orthopnea, Denies paroxysmal nocturnal dyspnea and Denies slow heart rate Resp Denies cough, Denies dyspnea and Denies dyspnea on exertion GI Denies abdominal pain, Denies change in bowel habits, Denies excessive flatus, Denies nausea and Denies vomiting Denies urinary incontinence, Denies urinary hesitancy and Denies urinary urgency Musc Denies abnormal gait, Denies atrophy, Denies deformity and Denies limited range of motion Skin/Breast Denies bleeding lesions, Denies changing lesions and Denies rash Neuro Denies abnormal gait, Denies behavioral changes, Denies confusion and Denies lack of coordination Psych Denies behavioral changes and Denies confusion Physical exam (Primary Care) Vital Signs: Last Vital Signs BP 120/80 02/03/24 12:20 BMI result Body Mass Index 32.7 Tobacco/Smoking Status: Tobacco use Status Tobacco use date assessed 01/07/24 02/03/24 12:24 Patient Tobacco Use Status Never used Tobacco 02/03/24 12:24 e-Cigarette/Vaping Use Never Used 02/03/24 12:24 Thrive Assessment: Date of Thrive Assessment Date Thrive assessed 01/07/24 02/03/24 12:24 Const General: No confusion Orientation/consciousness: patient oriented x3 and No confusion Eyes General: appearance normal, both eyes and all related structures Eyelids: Yes eyelids normal Conjunctivae: conjunctivae normal Neck Neck: Yes normal visual inspection and Yes supple Resp Effort & Inspection: normal respiratory effort Auscultation: clear to auscultation bilaterally Cardio Jugular venous distension: no JVD Rate: regular rate Rhythm: regular rhythm Heart sounds: S1 normal heart sound present and S2 normal heart sound present GI Inspection: Yes normal to inspection Palpation (GI): Soft to palpation and nontender Auscultation: normal bowel sounds Skin General skin exam: no rashes or lesions noted Neuro General: patient oriented x3, no focal motor deficits and No confusion Extrem General: Yes full ROM Psych Appearance: grossly normal Assessment and Plan Assessment & Plan (1) Pre-op evaluation: Code(s): Z01.818 - Encounter for other preprocedural examination Plan: Labs pending. Orders: Orders Prothrombin Time INR Today Z81 - Encounter for other preprocedural examination HCG Quantitative Today Z81 - Encounter for other preprocedural examination Hemoglobin A1c Today E11.40 - Type 2 diabetes mellitus with diabetic neuropathy, unspecified, Z.81 - Encounter for other preprocedural examination Sickle Cell Scr Today Z81 - Encounter for other preprocedural examination Triiodothyronine T3 Free Today Z81 - Encounter for other preprocedural examination T4 Thyroxine Today Z81 - Encounter for other preprocedural examination Partial Thromboplastin Time Today Z81 - Encounter for other preprocedural examination HIV Ab/Ag Today Z81 - Encounter for other preprocedural examination Thyroid Stimulating Hormone Today Z81 - Encounter for other preprocedural examination Coding Level of Care Code Est Pt Level 3 (32503) Diagnoses Pre-op evaluation Z
== END 2024-02-03 12:38 | disposition home or self-care (01) ==
PROVIDERS: PCP Internal Medicine; Visit Provider Internal Medicine
DX: Z01.818 Encounter for other preprocedural examination (principal)
CPT/HCPCS: 99213

== ENCOUNTER 2024-03-26 13:28 | Outpatient (AMB) | payer OTHER, SELFPAY ==
--- NOTE | 2024-03-26 13:42 | MHC.OFFVIS ---
Intake Visit Reasons: Leg discoloration Intake Note: Patient has history of micro , right gsv venaseal and left gsv rfa. She presents with a vein concern as her left leg had cramped up and she noticed her veins had popped out patient has picture to show Dr Deluna. She also states her left leg was discolored , says it looked like a bruise. Says the veins that are protruding are also painful. Allergies sumatriptan [From Imitrex] Adverse Reaction (Severe, Verified 03/26/24 13:47) palpitations, arm numbness HPI HPI Leg discoloration: Details: Very pleasant 33-year-old female presents for follow-up she had undergone right and left great saphenous vein ablation is along with microphlebectomy. She had some swelling and discomfort of a few superficial varicosities. 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 She now presents for follow-up evaluation [facility] Medical History Class 1 obesity with body mass index (BMI) of 32.0 to 32.9 in adult Migraines COVID-19 Surgical History History of varicose vein stripping Hx of tubal ligation Hx of cosmetic plastic surgery History of cholecystectomy Family History Father Diabetes mellitus Hypertension Mother No problems noted. Social History Housing: Apartment Alcohol intake: never Patient Tobacco Use Status: Never used Tobacco e-Cigarette/Vaping Use: Never Used Second Hand Smoke Exposure: No service: No Current occupational status: employed Current occupational exposures/hazards: No Cognitive needs: Yes Hearing needs: No Vision needs: No Female Reproductive History Menstrual Age of Menarche: 10 Review of Systems Const All systems reviewed & are unremarkable except as noted in HPI and below Reports no additional complaints ENT Reports Normal hearing present Card Denies chest pain, Denies chest pain at rest, Denies chest pain with activity and Denies pedal edema Resp Denies cough GI Denies abdominal pain Musc Denies abnormal gait, Denies muscle cramps and Denies radiating pain into limb Skin/Breast Denies skin ulcer and Denies wounds Neuro Reports Normal hearing present and Denies abnormal gait Psych Reports no additional complaints Physical Exam Const General: cooperative, healthy appearing and comfortable Orientation/consciousness: oriented to person, oriented to place and oriented to time HEENT Head: Yes normal to inspection Neck Neck: Yes normal visual inspection Carotids: no bruits Chest Chest palpation & inspection: normal inspection of the chest Resp Effort & Inspection: normal respiratory effort and able to speak in complete sentences Auscultation: clear to auscultation bilaterally, no crackles, no rales, no rhonchi and no wheezes Cardio Rate: regular rate Rhythm: regular rhythm Heart sounds: S1 normal heart sound present and S2 normal heart sound present Bruits: no carotid bruits Peripheral pulses: Peripheral pulses 2+ throughout GI Inspection: Yes normal to inspection Skin Wounds: no wounds Hair: normal Neuro General: oriented to person, oriented to place and oriented to time Cranial nerves: Yes CN's II-XII intact bilaterally and Yes Normal hearing present Cognition (Neuro): normal cognition Motor exam (neuro): 5/5 motor strength present throughout Extrem Other: venous exam: +1 edema Phlebitis of superficial varicosities left calf General: No clubbing, No cyanosis and Yes edema Psych Appearance: grossly normal Mental Status: mental status grossly normal Speech and movement: Normal speech and movement present Assessment & Plan Assessment & Plan (1) Varicose veins of left lower extremity with inflammation: Comment: 07/19/2023 - left GSV Radiofrequency ablation 12/20/2023 left leg microphlebectomy Code(s): I83.12 - Varicose veins of left lower extremity with inflammation Category: Medical Plan: In short patient had an episode of phlebitis. We did discuss routine conservative measures including use of warm compresses and nonsteroidal anti-inflammatories. In addition we did discuss use of compression stockings while working as she does have an ambulatory job. She will follow up with us on an as-needed basis. Thank you for allowing us to assist in her care. Coding Level of Care Code Est Pt Level 4 (46727) Diagnoses Varicose veins of left lower extremity with inflammation I83.12
== END 2024-03-26 14:09 | disposition home or self-care (01) ==
PROVIDERS: PCP Internal Medicine; Visit Provider Surgery Vascular Surgery
DX: I83.12 Varicose veins of left lower extremity with inflammation (principal)
CPT/HCPCS: 99213

== ENCOUNTER → 2024-03-26 13:28 | Outpatient (BNVA) | payer OTHER, SELFPAY | PROVIDERS: PCP Internal Medicine; Visit Provider Surgery Vascular Surgery | DX: I83.12 Varicose veins of left lower extremity with inflammation (principal) | CPT/HCPCS: 99212 ==

== ENCOUNTER 2024-04-22 11:27 | Outpatient (AMB) | payer OTHER, SELFPAY ==
--- NOTE | 2024-04-22 11:52 | MHC.OFFVIS ---
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 She would like to get screened for STIs though she has not having any particular worries. Her Pap smear was normal last year and normal in the past. She has been noticing pain in her left sides since December kind of is there all the time. Her last period only lasted 2 days sometimes she will miss a period for a month or 2 but not usually longer than that. She has always had that she also has some increased facial and body hair she does not think she is gained weight this year she thinks she has about the same. [facility] Medical History Class 1 obesity with body mass index (BMI) of 32.0 to 32.9 in adult Migraines COVID-19 Surgical History History of varicose vein stripping Hx of tubal ligation Hx of cosmetic plastic surgery History of cholecystectomy Family History Father Diabetes mellitus Hypertension Mother No problems noted. Social History Housing: Apartment Alcohol intake: never Patient Tobacco Use Status: Never used Tobacco e-Cigarette/Vaping Use: Never Used Second Hand Smoke Exposure: No service: No Current occupational status: employed Current occupational exposures/hazards: No Cognitive needs: Yes Hearing needs: No Vision needs: No Female Reproductive History Menstrual Age of Menarche: 10 Duration of menses: <3 days Date of last menstrual period: 04/08/24 control method: permanent sterilization Total pregnancies: 3 Full term: 3 Date of last pap smear: 04/17/23 (negative) History of abnormal pap smear: No Physical Exam Vital Signs: Last Vital Signs BP 120/70 04/22/24 11:53 BMI result Body Mass Index 32.7 Const General: healthy appearing, comfortable, no acute distress, well developed and alert Nutritional Appearance: average body habitus Orientation/consciousness: patient oriented x3 Limitations: no limitations HEENT Head: Yes normocephalic Neck Neck: Yes normal visual inspection Chest Chest palpation & inspection: normal inspection of the chest Breast/axilla inspection: normal inspection of the breasts and normal inspection of the axillae Breast/axilla palpation: normal palpation of the breasts and normal palpation of the axillae Resp Effort & Inspection: normal respiratory effort GI Inspection: Yes normal to inspection, No Abdominal wall edema and No distended Palpation (GI): Soft to palpation and nontender Other: External exam within normal limits vagina pink and moist very normal healthy appearing mucus cervix mobile nontender difficult to feel uterus completely patient does have some mild tenderness on left side, General: Yes bladder normal to palpation External Female Exam: normal external appearance and normal appearance of the urethra Speculum Exam - Vagina: normal appearance of the vagina, normal palpation and normal vaginal discharge Speculum Exam - Cervix: normal appearance of the cervix, normal palpation and nontender Bimanual exam- vagina & uterus: normal bimanual exam, normal palpation, uterine size normal, bladder normal to palpation, consistency normal, normal palpation, uterine mobility normal, uterine shape normal, No Cervical tenderness present, non-tender and no cervical motion tenderness Bimanual Exam- Adnexa, other: normal adnexae, no masses, normal and No adnexal tenderness Neuro General: patient oriented x3 Assessment & Plan Assessment & Plan (1) Obesity (BMI 30.0-34.9): Code(s): E66.9 - Obesity, unspecified Category: Medical (2) Well woman exam: Code(s): Z01.419 - Encounter for gynecological examination (general) (routine) without abnormal findings Category: Medical (3) Encounter for screening examination for sexually transmitted disease: Code(s): Z11.3 - Encounter for screening for infections with a predominantly sexual mode of transmission Category: Medical (4) Hirsutism: Code(s): L68.0 - Hirsutism Category: Medical (5) History of irregular menstrual cycles: Code(s): Z87.42 - Personal history of other diseases of the female genital tract Category: Medical (6) Left sided abdominal pain: Code(s): R10.9 - Unspecified abdominal pain Category: Medical (7) Pelvic pain: Code(s): R10.2 - Pelvic and perineal pain Category: Medical Plan -----Discussed in this visit the following: healthy balanced diet, regular and consistent exercise, getting recommended health screens, doing the best she can for her particular health concerns, kegel exercises, pap smear screening and followup recommendations, mammography screening and SBE, normal changes in cycles in her life stage--- . Reviewed the possible connections between hirsutism and increased hormone levels particularly testosterone and irregular menses and also with weight and also with formation of ovarian cysts from an ovulatory cycles testing also offered for STI screens which she accepted added thyroid and testosterone levels to test profile. Also will get an ultrasound to check to see if there is an ovarian cyst on the left side discussed the possible formation of cysts when she does not ovulate and the this could explain her discomfort if she were to get very severe pain she would need to seek emergency care. We will have a follow-up visit after the ultrasound. Orders: Orders HIV Ab/Ag Today E66.9 - Obesity, unspecified, L68.0 - Hirsutism, Z01.419 - Encounter for gynecological examination (general) (routine) without abnormal findings, Z11.3 - Encounter for screening for infections with a predominantly sexual mode of transmission Hepatitis C Antibody Today E66.9 - Obesity, unspecified, L68.0 - Hirsutism, Z01.419 - Encounter for gynecological examination (general) (routine) without abnormal findings, Z11.3 - Encounter for screening for infections with a predominantly sexual mode of transmission Hepatitis B Surface Antigen Today E66.9 - Obesity, unspecified, L68.0 - Hirsutism, Z01.419 - Encounter for gynecological examination (general) (routine) without abnormal findings, Z11.3 - Encounter for screening for infections with a predominantly sexual mode of transmission Syphilis Screen Today E66.9 - Obesity, unspecified, L68.0 - Hirsutism, Z01.419 - Encounter for gynecological examination (general) (routine) without abnormal findings, Z11.3 - Encounter for screening for infections with a predominantly sexual mode of transmission Testosterone, Free/Total Today E66.9 - Obesity, unspecified, L68.0 - Hirsutism, N92.6 - Irregular menstruation, unspecified, Z01.419 - Encounter for gynecological examination (general) (routine) without abnormal findings, Z11.3 - Encounter for screening for infections with a predominantly sexual mode of transmission US pelvic and transvaginal Today L68.0 - Hirsutism, R10.2 - Pelvic and perineal pain, R10.9 - Unspecified abdominal pain, Z87.42 - Personal history of other diseases of the female genital tract Thyroid Stimulating Hormone Today E66.9 - Obesity, unspecified, L68.0 - Hirsutism, R10.2 - Pelvic and perineal pain, R10.9 - Unspecified abdominal pain, Z01.419 - Encounter for gynecological examination (general) (routine) without abnormal findings, Z11.3 - Encounter for screening for infections with a predominantly sexual mode of transmission, Z87.42 - Personal history of other diseases of the female genital tract Coding Level of Care Code Est Pt Prev Care 18-39y([id number]) Diagnoses Obesity (BMI 30.0-34.9) E66.9 Well woman exam Z01.419 Encounter for screening examination for sexually transmitted disease Z11.3 Hirsutism L68.0 History of irregular menstrual cycles Z87.42 Left sided abdominal pain R10.9 Pelvic pain R10.2
[2024-04-22 11:53] VITALS: BP 120/70; BMI 32.7
== END 2024-04-22 12:29 | disposition home or self-care (01) ==
PROVIDERS: Visit Provider Advanced Practice Midwife
DX: Z01.419 Encounter for gynecological examination (general) (routine) without abnormal findings (principal); L68.0 Hirsutism; R10.2 Pelvic and perineal pain; E66.9 Obesity, unspecified; Z87.42 Personal history of other diseases of the female genital tract
CPT/HCPCS: 99395

== ENCOUNTER 2024-04-22 11:27 | Outpatient (REF) | payer OTHER, SELFPAY ==
[2024-04-23 04:02] LABS: CT PCR NOT DETECTED (Not Detect.); NG PCR NOT DETECTED (Not Detect.)
[2024-04-23 09:08] LABS: Bacterial Vaginosis PCR NEGATIVE (Negative); Candida Group PCR NOT DETECTED (Not Detect); Candida glab krusei PCR NOT DETECTED (Not Detect); Trichomonas vaginalis PCR NOT DETECTED (Not Detect)
== END 2024-04-22 11:28 | disposition home or self-care (01) ==
LOC: HO.LAB 11:27
PROVIDERS: Visit Provider Advanced Practice Midwife
DX: Z01.419 Encounter for gynecological examination (general) (routine) without abnormal findings (principal); E66.9 Obesity, unspecified; L68.0 Hirsutism; R10.9 Unspecified abdominal pain; R10.2 Pelvic and perineal pain; Z11.3 Encounter for screening for infections with a predominantly sexual mode of transmission; Z87.42 Personal history of other diseases of the female genital tract
CPT/HCPCS: 0352U; 0353U; 99395

== ENCOUNTER 2024-05-01 08:42 | Outpatient (REF) | payer OTHER, SELFPAY ==
[2024-05-01 11:45] LABS: Syphilis Screen Nonreactive (Nonreactive)
[2024-05-01 11:46] LABS: Thyroid Stimulating Hormone 1.02 uIU/mL (0.32-4.0)
[2024-05-01 11:47] LABS: HIV AB/AG Nonreactive (Nonreactive); HIV Num 1 0.11 S/CO (0.00-0.99); Hepatitis B Surface Antigen Negative (Negative); ~HepC Num1 0.14 S/CO (0.00-0.79); ~Hepatitis C Antibody Nonreactive (Nonreactive)
[2024-05-05 17:04] LABS: Testosterone, Free 17.3 pg/mL (0.1-6.4); Testosterone, Total 122 ng/dL (2-45)
== END 2024-05-01 08:43 | disposition home or self-care (01) ==
LOC: HO.HHCL 08:42
PROVIDERS: Visit Provider Advanced Practice Midwife
DX: Z01.419 Encounter for gynecological examination (general) (routine) without abnormal findings (principal); R10.2 Pelvic and perineal pain; R10.9 Unspecified abdominal pain; L68.0 Hirsutism; E66.9 Obesity, unspecified; N92.6 Irregular menstruation, unspecified; Z87.42 Personal history of other diseases of the female genital tract; Z11.3 Encounter for screening for infections with a predominantly sexual mode of transmission
CPT/HCPCS: 36415; 84402; 84403; 84443; 86780; 86803; 87340; 87389

== ENCOUNTER 2024-05-01 10:36 | Outpatient (REF) | payer OTHER, SELFPAY ==
--- NOTE | ~2024-05-01 | US_ITS ---
EXAMINATION: US PELVIS CLINICAL INFORMATION: Hirsutism. LMP end of March 2024. COMPARISON: None available. TECHNIQUE: Ultrasound of the pelvis is performed using both transabdominal and transvaginal transducers along with Doppler. Transvaginal imaging is performed due to inadequate visualization transabdominally. FINDINGS: Uterus: The uterus is anteverted and measures 7.1 x 3.6 x 5.3 cm. The double wall endometrial thickness is 3 mm. The uterus is smooth in contour and has normal myometrial echogenicity. No visible fibroid. Adnexa: Both ovaries are visualized. There is normal color flow to the adnexa. There is no ovarian torsion. There is no pelvic ascites or fluid collection. Right ovary measures 3.6 x 2.0 x 3.6 cm. 13.6 mL. Greater than 15 sub-1 cm ovarian follicles. Left ovary measures 3.6 x 1.7 x 3.6 cm. 10.3 mL in volume. Greater than 15 sub-1 cm ovarian follicles. US/US pelvic and transvaginal IMPRESSION: * Bilateral enlarged ovaries with greater than 15 sub-1 cm ovarian follicles. These findings are nonspecific but can be seen in the setting of polycystic ovarian syndrome. * Normal sonographic appearance of the uterus.
== END 2024-05-01 10:37 | disposition home or self-care (01) ==
LOC: HO.US 10:36
PROVIDERS: PCP Internal Medicine; Visit Provider Advanced Practice Midwife
DX: L68.0 Hirsutism (principal); R10.9 Unspecified abdominal pain; R10.2 Pelvic and perineal pain; Z87.42 Personal history of other diseases of the female genital tract
CPT/HCPCS: 76830; 76856

== ENCOUNTER 2024-06-01 09:49 | Outpatient (AMB) | payer OTHER, SELFPAY ==
--- NOTE | 2024-06-01 09:40 | MHC.OFFVIS ---
Vital Signs 06/01/24 09:40 BP not taken reason Patient Refused Intake Visit Reasons: TV US follow up Allergies sumatriptan [From Imitrex] Adverse Reaction (Severe, Verified 04/22/24 11:56) palpitations, arm numbness HPI HPI TV US follow up: Details: this is a televisit to review patients u/s , f/u to recent annual exam and concerns,...She has irreg periods, no menses since march.see annual exam note re hirsutism an dhx od iireg menses.. PFSH Medical History Class 1 obesity with body mass index (BMI) of 32.0 to 32.9 in adult Migraines COVID-19 Surgical History History of varicose vein stripping Hx of tubal ligation Hx of cosmetic plastic surgery History of cholecystectomy Family History Father Diabetes mellitus Hypertension Mother No problems noted. Social History Housing: Apartment Alcohol intake: never Patient Tobacco Use Status: Never used Tobacco e-Cigarette/Vaping Use: Never Used Second Hand Smoke Exposure: No service: No Current occupational status: employed Current occupational exposures/hazards: No Cognitive needs: Yes Hearing needs: No Vision needs: No Female Reproductive History Menstrual Age of Menarche: 10 Telehealth Telehealth Telehealth Platform: Telephone Location of provider rendering services: practice address Location of patient: address on file Patient Identification confirmed using: Name, : Yes Telehealth method: voice only Patient verbally consented to treatment: Yes Patient verbally consented to billing insurance company: Yes Patient informed of any privacy concerns related to visit: Yes Minutes spent on Phone/Video with Pt.: 7 (3 cr /7 speaking w pt / 5 charting=15) Results Reviewed Results Reviewed: Patient: Rocio Stein MR#: [id number] : 1990 Acct:[id number] Age/Sex: 33 / F ADM Date: 05/01/24 Loc: HO.US Attending Dr: Tammy Garnett CNM Ordering Physician: Tammy Garnett CNM Date of Service: 05/01/24 Procedure(s): US pelvic and transvaginal Accession Number(s): [id number] cc: Tammy Garnett CNM; Leilani Wong MD~ EXAMINATION: US PELVIS CLINICAL INFORMATION: Hirsutism. LMP end of March 2024. COMPARISON: None available. TECHNIQUE: Ultrasound of the pelvis is performed using both transabdominal and transvaginal transducers along with Doppler. Transvaginal imaging is performed due to inadequate visualization transabdominally. FINDINGS: Uterus: The uterus is anteverted and measures 7.1 x 3.6 x 5.3 cm. The double wall endometrial thickness is 3 mm. The uterus is smooth in contour and has normal myometrial echogenicity. No visible fibroid. Adnexa: Both ovaries are visualized. There is normal color flow to the adnexa. There is no ovarian torsion. There is no pelvic ascites or fluid collection. Right ovary measures 3.6 x 2.0 x 3.6 cm. 13.6 mL. Greater than 15 sub-1 cm ovarian follicles. Left ovary measures 3.6 x 1.7 x 3.6 cm. 10.3 mL in volume. Greater than 15 sub-1 cm ovarian follicles. US/US pelvic and transvaginal IMPRESSION: * Bilateral enlarged ovaries with greater than 15 sub-1 cm ovarian follicles. These findings are nonspecific but can be seen in the setting of polycystic ovarian syndrome. * Normal sonographic appearance of the uterus. 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 reviewed that these are some markers for pcos, though shes had them all her life and she has her tubes tied so timing of is no longer an issue. discussed that its common w this to have irreg cycles and how the follicles form. If she ever misses 3 months of menses , she should call so we could discuss it and treat her appropriately Coding Level of Care Code Tele Est Pt Level 3 (89079) Diagnoses History of irregular menstrual cycles Z87.42 Hirsutism L68.0 Left sided abdominal pain R10.9 Time Spent (min) 15
== END 2024-06-01 10:07 | disposition home or self-care (01) ==
LOC: HO.HWSM 09:49
PROVIDERS: PCP Internal Medicine; Visit Provider Advanced Practice Midwife
DX: Z87.42 Personal history of other diseases of the female genital tract (principal); L68.0 Hirsutism; R10.9 Unspecified abdominal pain
CPT/HCPCS: 99213

== ENCOUNTER → 2024-06-01 09:49 | Outpatient (BNVA) | payer OTHER, SELFPAY | PROVIDERS: PCP Internal Medicine; Visit Provider Advanced Practice Midwife ==

== ENCOUNTER 2024-07-28 15:16 | Outpatient (AMB) | payer OTHER, SELFPAY ==
--- NOTE | 2024-07-28 15:20 | MHC.OFFVIS ---
Intake Visit Reasons: 6 month leg check Intake Note: Patient presents for 6 month leg check. She states her legs feel fine but she is experiencing cramping at night. Allergies sumatriptan [From Imitrex] Adverse Reaction (Severe, Verified 07/28/24 15:22) palpitations, arm numbness HPI HPI 6 month leg check: Details: Very pleasant 33-year-old female presents for routine surveillance follow-up. She had undergone venous procedures with us and did have some residual varicosities. In general she reports no significant discomfort. 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 She is able to carry out her daily activities with no significant difficulty. She now presents for follow-up. [facility]END[facility] S[facility] TO [facility] Medical History Class 1 obesity with body mass index (BMI) of 32.0 to 32.9 in adult Migraines COVID-19 Surgical History History of varicose vein stripping Hx of tubal ligation Hx of cosmetic plastic surgery History of cholecystectomy Family History Father Diabetes mellitus Hypertension Mother No problems noted. Social History Housing: Apartment Alcohol intake: never Patient Tobacco Use Status: Never used Tobacco e-Cigarette/Vaping Use: Never Used Second Hand Smoke Exposure: No service: No Current occupational status: employed Current occupational exposures/hazards: No Cognitive needs: Yes Hearing needs: No Vision needs: No Female Reproductive History Menstrual Age of Menarche: 10 Review of Systems Const All systems reviewed & are unremarkable except as noted in HPI and below Reports no additional complaints ENT Reports Normal hearing present Card Denies chest pain, Denies chest pain at rest, Denies chest pain with activity and Denies pedal edema Resp Denies cough GI Denies abdominal pain Musc Denies abnormal gait, Denies muscle cramps and Denies radiating pain into limb Skin/Breast Denies skin ulcer and Denies wounds Neuro Reports Normal hearing present and Denies abnormal gait Psych Reports no additional complaints Physical Exam Const General: cooperative, healthy appearing and comfortable Orientation/consciousness: oriented to person, oriented to place and oriented to time HEENT Head: Yes normal to inspection Neck Neck: Yes normal visual inspection Carotids: no bruits Chest Chest palpation & inspection: normal inspection of the chest Resp Effort & Inspection: normal respiratory effort and able to speak in complete sentences Auscultation: clear to auscultation bilaterally, no crackles, no rales, no rhonchi and no wheezes Cardio Rate: regular rate Rhythm: regular rhythm Heart sounds: S1 normal heart sound present and S2 normal heart sound present Bruits: no carotid bruits Peripheral pulses: Peripheral pulses 2+ throughout GI Inspection: Yes normal to inspection Skin Wounds: no wounds Hair: normal Neuro General: oriented to person, oriented to place and oriented to time Cranial nerves: Yes CN's II-XII intact bilaterally and Yes Normal hearing present Cognition (Neuro): normal cognition Motor exam (neuro): 5/5 motor strength present throughout Extrem Other: venous exam: No significant superficial varicosities or spider telangiectasias, minimal edema General: No clubbing, No cyanosis and No edema Psych Appearance: grossly normal Mental Status: mental status grossly normal Speech and movement: Normal speech and movement present Assessment & Plan Assessment & Plan (1) Varicose veins of right lower extremity with inflammation: Comment: 08/23/2023 - right great saphenous vein Cyanoacralate ablation Code(s): I83.11 - Varicose veins of right lower extremity with inflammation Category: Medical Plan: See below (2) Varicose veins of left lower extremity with inflammation: Comment: 07/19/2023 - left GSV Radiofrequency ablation 12/20/2023 left leg microphlebectomy Code(s): I83.12 - Varicose veins of left lower extremity with inflammation Category: Medical Plan: From a venous standpoint she appears to be doing relatively well. We did discuss routine conservative measures including compression elevation and exercise. Additional intervention is not warranted at this time. She will follow up with us on an as-needed basis. Thank you for allowing us to assist in her care. If there are any questions or concerns please do not hesitate to contact us Coding Level of Care Code Est Pt Level 4 (40937) Diagnoses Varicose veins of right lower extremity with inflammation I83.11 Varicose veins of left lower extremity with inflammation I83.12
== END 2024-07-28 15:34 | disposition home or self-care (01) ==
PROVIDERS: PCP Internal Medicine; Visit Provider Surgery Vascular Surgery
DX: I83.11 Varicose veins of right lower extremity with inflammation (principal); I83.12 Varicose veins of left lower extremity with inflammation
CPT/HCPCS: 99214

== ENCOUNTER → 2024-07-28 15:16 | Outpatient (BNVA) | payer OTHER, SELFPAY | PROVIDERS: PCP Internal Medicine; Visit Provider Surgery Vascular Surgery | DX: I83.11 Varicose veins of right lower extremity with inflammation (principal); I83.12 Varicose veins of left lower extremity with inflammation | CPT/HCPCS: 99212 ==

== ENCOUNTER 2025-02-16 10:53 | Outpatient (AMB) | payer OTHER, SELFPAY ==
--- NOTE | 2025-02-16 11:02 | MHC.PC.OV ---
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 Accompanied by: Self / Same As Patient Allergies sumatriptan [From Imitrex] Adverse Reaction (Severe, Verified 02/16/25 11:13) palpitations, arm numbness Medication List - Last Reconciled 02/16/25 by Leilani Kimbrough MD No Known Home Meds Tobacco use date assessed: 02/16/25 Dental Screening Dental Screen Date: 02/16/25 Did you have a dental visit in the last 12 months?: Yes Did you have a dental problem in the last 6 months where you did not have access to dental care?: No Was dental information given to patient?: Patient has dentist HPI HPI Comments History of Present Illness Details The patient is a 34-year-old female presenting for her annual physical examination, with a primary concern being her migraines. She reports these migraines occurring approximately two to three times monthly, with symptoms including nausea, vomiting, and photophobia. These episodes are severe, primarily impacting the right side of her head and often causing dizziness. Her previous treatment with Sumatriptan was discontinued due to palpitations, and she has since been managing with ibuprofen, which is inadequate. Discussion included the introduction of Rizatriptan as an alternative treatment under cautious supervision. - Pap smear in 2022: Negative for HPV - Tetanus vaccine in 2021, next due in 2031 - Mammography not yet indicated until age 38 - Colonoscopy to commence at age 43 [facility] Medical History (Updated 02/16/25 @ 11:23 by Leilani Kimbrough MD) Class 1 obesity with body mass index (BMI) of 32.0 to 32.9 in adult Migraines COVID-19 Surgical History History of varicose vein stripping Hx of tubal ligation Hx of cosmetic plastic surgery History of cholecystectomy Family History Father Diabetes mellitus Hypertension Mother No problems noted. Social History Housing: Apartment Alcohol intake: never Patient Tobacco Use Status: Never used Tobacco e-Cigarette/Vaping Use: Never Used Second Hand Smoke Exposure: No service: No Current occupational status: employed Current occupational exposures/hazards: No Cognitive needs: Yes Hearing needs: No Vision needs: No Female Reproductive History Menstrual Age of Menarche: 10 Questionnaire PHQ-9 Over the last 2 weeks, how often have you been bothered by any of the following problems? 1. Little interest or pleasure in doing things: not at all 2. Feeling down, depressed, or hopeless: not at all 3. Trouble falling or staying asleep, or sleeping too much: not at all 4. Feeling tired or having little energy: not at all 5. Poor appetite or overeating: not at all 6. Feeling bad about yourself - or that you are a failure or have let yourself or your family down: not at all 7. Trouble concentrating on things, such as reading the newspaper or watching television: not at all 8. Moving or speaking so slowly that other people could have noticed. Or the opposite - being so fidgety or restless that you have been moving around a lot more than usual: not at all 9. Thoughts that you would be better off or of hurting yourself in some way: not at all Total score: 0 Depression Screening Interpretation: Negative Depression Screening Done: Yes 44225 - PHQ-9 Billing: Yes Source: Developed by Drs. Brian Magallanes, Emy Addison, Tyler De Luna and colleagues, with an educational carolina from [employer]. Thrive Questionnaire Date Thrive assessed: 02/16/25 I am a: Patient What is your living situation today?: I have a steady place to live Within the past 12 months, did the food you bought not last and you didn't have the money to get more?: Never true Within the past 12 months, did you worry whether your food would run out before you got money to buy more?: Never true Do you have trouble paying for medicines?: No Do you have trouble getting transportation to medical appointments?: Yes Do you have trouble paying your heating and electricity bill?: No Do you have trouble taking care of your child, family member or friend?: No Do you have trouble with day-to-day activities such as bathing, preparing meals, shopping, managing finances, etc.?: No Are you currently unemployed and looking for a job?: No Are you interested in more education?: I choose not to answer this question Please select the resources that you would like help with: None Currently or been in a relationship where the following occur: No concerns reported THRIVE Score: 1 AUDIT C Alcohol Use Questionnaire (AUDIT-C) 1. How often do you have a drink containing alcohol?: Never Total Score: 0 Score Reviewed/Action Taken: No CATHERINE-7 AMB Questionnaire CATHERINE-7 Date CATHERINE - 7 assessed: 02/16/25 Feeling nervous, anxious, or on edge: 0 = Not at all Not being able to stop or control worryin = Not at all Worrying too much about different things: 0 = Not at all Trouble relaxin = Not at all Being so restless that it is hard to sit still: 0 = Not at all Becoming easily annoyed or irritable: 0 = Not at all Feeling afraid as if something awful might happen: 0 = Not at all Total CATHERINE-7 score (0-4 normal; 5-9 mild; 10-14 moderate; 15-21 severe): 0 Source: Developed by Drs. Brian Magallanes, Emy Addison, Tyler De Luna and colleagues, with an educational carolina from [employer]. CATHERINE-7 Assessment Billing CATHERINE-7 Assessment Tool: CATHERINE-7 Assessment 66297 Review of Systems Const All systems reviewed & are unremarkable except as noted in HPI and below Card Denies chest pain at rest, Denies chest pain with activity, Denies edema, Denies irregular heart rhythm, Denies claudication, Denies dyspnea, Denies dyspnea on exertion, Denies orthopnea, Denies paroxysmal nocturnal dyspnea and Denies slow heart rate Resp Denies cough, Denies dyspnea and Denies dyspnea on exertion GI Denies abdominal pain, Denies change in bowel habits, Denies excessive flatus, Denies nausea and Denies vomiting Denies urinary incontinence, Denies urinary hesitancy and Denies urinary urgency Neuro Denies lack of coordination Physical exam (Primary Care) Vital Signs: Last Vital Signs BP 120/80 02/16/25 11:03 BMI result Body Mass Index 31.5 BMI Assessment/Plan discussion: High BMI High, discussed plan: lifestyle, weight reduction, dietary and physical activity Tobacco/Smoking Status: Tobacco use Status Tobacco use date assessed 02/16/25 02/16/25 11:07 Patient Tobacco Use Status Never used Tobacco 02/16/25 11:07 e-Cigarette/Vaping Use Never Used 02/16/25 11:07 PHQ-9: PHQ-9 Score PHQ-9: Total score 0 02/16/25 11:15 Depression Screening Interpretation: Negative Thrive Assessment: Date of Thrive Assessment Date Thrive assessed 02/16/25 02/16/25 11:07 Currently or been in a relationship where the following occur: No concerns reported HENMT Head: Yes normal to inspection, Yes normocephalic and Yes atraumatic Ears: external ears normal Eyes General: appearance normal, both eyes and all related structures Eyelids: Yes eyelids normal Conjunctivae: conjunctivae normal Neck Neck: Yes normal visual inspection and Yes supple Resp Effort & Inspection: normal respiratory effort Auscultation: clear to auscultation bilaterally Cardio Jugular venous distension: no JVD Rate: regular rate Rhythm: regular rhythm Heart sounds: S1 normal heart sound present and S2 normal heart sound present GI Inspection: Yes normal to inspection Palpation (GI): Soft to palpation and nontender Auscultation: normal bowel sounds Skin General skin exam: no rashes or lesions noted Neuro General: no focal motor deficits Extrem General: Yes full ROM Psych Appearance: grossly normal Coding Level of Care Code Est Pt Level 3 (90445) Est Pt Prev Care 18-39y(55894) Diagnoses Physical exam Z00.00 Migraines G43.909 Additional Codes CATHERINE-7 Assessment Billing - CATHERINE-7 Assessment Tool: CATHERINE-7 Assessment 07628 ([id number]) PHQ-9 - 95826 - PHQ-9 Billing: Yes ([id number]) Time Spent (min) 33 Assessment & Plan Assessment & Plan (1) Physical exam: Code(s): Z00.00 - Encounter for general adult medical examination without abnormal findings Category: Medical (2) Migraines: Code(s): G43.909 - Migraine, unspecified, not intractable, without status migrainosus Category: Medical Plan Considering the patient's history of migraines and previous intolerance to Sumatriptan, Rizatriptan will be prescribed with caution. Magnesium will be introduced in her nighttime routine to possibly alleviate migraines. A neurology referral is initiated to evaluate other therapeutic options. Pre-operative tests including lab work and an EKG are arranged in preparation for her elective surgery. Patient was informed and verbally consented to the use of an ambient scribe for clinic note documentation during this visit. I discussed with the patient the implications of her migraines and the importance of seeking more specialized care through a neurology referral. We reviewed the potential risks and benefits of Rizatriptan, given her previous reaction to Sumatriptan, and the patient understood the necessity of close monitoring once treatment commences. The benefits of magnesium were highlighted along with its safety profile. Pre-surgical evaluation was also addressed to ensure her well-being prior to the upcoming surgery. Orders: Orders Lipid Panel Today Z00.00 - Encounter for general adult medical examination without abnormal findings Complete Blood Count Auto Diff Today G43.909 - Migraine, unspecified, not intractable, without status migrainosus Comprehensive [place]. Panel Fast Today G43.909 - Migraine, unspecified, not intractable, without status migrainosus Referrals Neurology Referral G43.909 - Migraine, unspecified, not intractable, without status migrainosus Medications: New rizatriptan do not exceed 6 doses per 24 hrs 5 mg PO Q2-4H PRN 5 tabs 1RF migraine headache 30 days G43.909 - Migraine, unspecified, not intractable, without status migrainosus magnesium oxide 400 mg PO BEDTIME 90 tabs 1RF 90 days G43.909 - Migraine, unspecified, not intractable, without status migrainosus Patient Instructions: - Begin taking Rizatriptan as prescribed, monitor any side effects - Take magnesium as directed before bedtime to help reduce migraine frequency - Keep hydrated and follow a consistent sleep schedule - Attend the neurology appointment as scheduled for further evaluation - Complete pre-operative lab tests and EKG before March 03 - Seek medical attention if experiencing severe or unusual symptoms
[2025-02-16 11:03] VITALS: BP 120/80; BMI 31.5
== END 2025-02-16 11:29 | disposition home or self-care (01) ==
LOC: HO.HMCH 10:53
PROVIDERS: PCP Internal Medicine; Visit Provider Internal Medicine
DX: Z00.00 Encounter for general adult medical examination without abnormal findings (principal); G43.909 Migraine, unspecified, not intractable, without status migrainosus

== ENCOUNTER → 2025-02-16 10:53 | Outpatient (BNVA) | payer OTHER, SELFPAY | PROVIDERS: PCP Internal Medicine; Visit Provider Internal Medicine | DX: Z00.00 Encounter for general adult medical examination without abnormal findings (principal); G43.909 Migraine, unspecified, not intractable, without status migrainosus | CPT/HCPCS: 96127; 99212; 99395 ==

== ENCOUNTER 2025-03-03 10:35 | Outpatient (AMB) | payer OTHER, SELFPAY ==
[2025-03-03 11:08] VITALS: BP 122/70; PULSE 76; TEMP 36.3; O2SAT 96; BMI 31.7
--- NOTE | 2025-03-03 11:08 | A.OFFPC_ITS ---
Vital Signs 03/03/25 11:08 Height 5 ft 2 in Weight 173 lb 8 oz BMI 31.7 BP 122/70 Blood Pressure Location Lt brachial Position Sitting Pulse 76 Pulse Source Pulse Oximeter Temp 97.3 F Temp Source Temporal Artery Scan Pulse Oximetry (%) 96 Oxygen Delivery Method Room Air Intake Visit Reasons: [place] Intake Note: Patient is here for a Pre-op for abdominoplasty scheduled in [place] on 03/16/25. Video Library Assistant Required: No Accompanied by: Self / Same As Patient Allergies sumatriptan [From Imitrex] Adverse Reaction (Severe, Verified 03/03/25 11:35) palpitations, arm numbness Medication List - Last Reconciled 03/03/25 by Leilani Kimbrough MD magnesium oxide 400 mg PO BEDTIME 90 days rizatriptan 5 mg PO Q2-4H PRN 30 days Tobacco use date assessed: 02/16/25 Dental Screening Dental Screen Date: 02/16/25 HPI HPI Comments History of Present Illness Details The patient is a 34-year-old female presenting for surgical clearance for an upcoming abdominoplasty scheduled on March 16. She has a history of migraines controlled with magnesium and lisatriptan. The patient is also post- tubal ligation and has undergone a previous liposuction. She is seeking an abdominoplasty to remove remaining abdominal tissue and is aware of the moderate surgical risk involved. Her post-operative recovery is anticipated to last two months. Family medical history is pertinent for her father having diabetes mellitus and hypertension. She reports no tobacco or alcohol use, normal urinary and bowel functions, and no difficulty with daily activities. [facility] Medical History Class 1 obesity with body mass index (BMI) of 32.0 to 32.9 in adult Migraines COVID-19 Surgical History History of varicose vein stripping Hx of tubal ligation Hx of cosmetic plastic surgery History of cholecystectomy Family History Father Diabetes mellitus Hypertension Mother No problems noted. Social History Housing: Apartment Alcohol intake: never Patient Tobacco Use Status: Never used Tobacco e-Cigarette/Vaping Use: Never Used Second Hand Smoke Exposure: No service: No Current occupational status: employed Current occupational exposures/hazards: No Cognitive needs: Yes Hearing needs: No Vision needs: No Female Reproductive History Menstrual Age of Menarche: 10 Questionnaire Thrive Questionnaire Date Thrive assessed: 02/16/25 I am a: Patient What is your living situation today?: I have a steady place to live Within the past 12 months, did the food you bought not last and you didn't have the money to get more?: Never true Within the past 12 months, did you worry whether your food would run out before you got money to buy more?: Never true Do you have trouble paying for medicines?: No Do you have trouble getting transportation to medical appointments?: Yes Do you have trouble paying your heating and electricity bill?: No Do you have trouble taking care of your child, family member or friend?: No Do you have trouble with day-to-day activities such as bathing, preparing meals, shopping, managing finances, etc.?: No Are you currently unemployed and looking for a job?: No Are you interested in more education?: I choose not to answer this question Please select the resources that you would like help with: None Currently or been in a relationship where the following occur: No concerns reported THRIVE Score: 1 CATHERINE-7 AMB Questionnaire CATHERINE-7 Date CATHERINE - 7 assessed: 02/16/25 Source: Developed by Drs. Brian Magallanes, Emy Addison, Tyler De Luna and colleagues, with an educational carolina from [employer]. Review of Systems Const All systems reviewed & are unremarkable except as noted in HPI and below Card Denies chest pain at rest, Denies chest pain with activity, Denies edema, Denies irregular heart rhythm, Denies claudication, Denies dyspnea, Denies dyspnea on exertion, Denies orthopnea, Denies paroxysmal nocturnal dyspnea and Denies slow heart rate Resp Denies cough, Denies dyspnea and Denies dyspnea on exertion GI Denies abdominal pain, Denies change in bowel habits, Denies excessive flatus, Denies nausea and Denies vomiting Neuro Denies lack of coordination Physical exam (Primary Care) Vital Signs: Last Vital Signs Temp 97.3 F 03/03/25 11:08 Pulse 76 04/09/25 11:08 BP 122/70 03/03/25 11:08 Pulse Ox 96 03/03/25 11:08 Oxygen Delivery Method Room Air 03/03/25 11:08 BMI result Body Mass Index 31.7 Tobacco/Smoking Status: Tobacco use Status Tobacco use date assessed 02/16/25 03/03/25 11:09 Patient Tobacco Use Status Never used Tobacco 03/03/25 11:09 e-Cigarette/Vaping Use Never Used 03/03/25 11:09 Thrive Assessment: Date of Thrive Assessment Date Thrive assessed 02/16/25 03/03/25 11:09 Currently or been in a relationship where the following occur: No concerns reported Resp Effort & Inspection: normal respiratory effort Auscultation: clear to auscultation bilaterally Cardio Jugular venous distension: no JVD Rate: regular rate Rhythm: regular rhythm Heart sounds: S1 normal heart sound present and S2 normal heart sound present GI Inspection: Yes normal to inspection Palpation (GI): Soft to palpation and nontender Auscultation: normal bowel sounds Extrem General: Yes full ROM Coding Level of Care Code Est Pt Level 4 (58869) Complex EM visit Add On G2211 Diagnoses Pre-op evaluation Z01.818 Migraines G43.909 Time Spent (min) 23 Assessment & Plan Assessment & Plan (1) Pre-op evaluation: Code(s): Z01.818 - Encounter for other preprocedural examination Category: Medical (2) Migraines: Code(s): G43.909 - Migraine, unspecified, not intractable, without status migrainosus Category: Medical Plan The patient is scheduled for abdominoplasty and needs medical clearance. Necessary labs include CBC, CMP, cholesterol, and EKG. She will undergo these tests tomorrow to proceed with clearance. The surgery carries a medium risk, and general anesthesia will be used. The patient plans a two-month recovery post- surgery, avoiding strenuous activities. All results will be reviewed, and the medical clearance forwarded to the surgeon. Patient was informed and verbally consented to the use of an ambient scribe for clinic note documentation during this visit. I discussed the upcoming abdominoplasty with the patient, emphasizing the medium surgical risk due to the abdominal nature of the procedure and the use of general anesthesia. I detailed the requirement for upcoming lab work (CBC, CMP, cholesterol) and EKG for surgical clearance. The patient understood the need to fast before these tests, which will be conducted tomorrow. We agreed on a recovery period of two months, although she initially sought three months' leave from work. Anesthesia and surgical risks were discussed, and the patient agreed to receive the final medical clearance once all diagnostic results are obtained. We will send the clearance directly to the surgeon. Patient Instructions: I discussed the upcoming abdominoplasty with the patient, emphasizing the medium surgical risk due to the abdominal nature of the procedure and the use of general anesthesia. I detailed the requirement for upcoming lab work (CBC, CMP, cholesterol) and EKG for surgical clearance. The patient understood the need to fast before these tests, which will be conducted tomorrow. We agreed on a recovery period of two months, although she initially sought three months' leave from work. Anesthesia and surgical risks were discussed, and the patient agreed to receive the final medical clearance once all diagnostic results are obtained. We will send the clearance directly to the surgeon.
--- OUTSIDE RECORDS SUMMARY | 2025-03-03 12:06 | XMS_ITS | Clinical Summary ---
Author Organization [facility] ity Address [address] [place] [address] Care Team Providers Care Research Geneticist Name Role Phone Leilani Kimbrough MD Primary Care Provider Social History Tobacco Use Types Packs/Day Years Used Date Smoking Tobacco: Never Alcohol Use Standard Drinks/Week Comments Never 0 (1 standard drink = 0.6 oz pur e alcohol) Comments Unknown Sex and Gender Information Value Date Recorded Sex Assigned at Not on file Legal Sex Female 4:32 AM EST Gender Identity Not on file Sexual Orientation Not on file Obstetrics History Plan of Treatment Health Maintenance Due Date Last Done Comments DTaP,Tdap,and Td Vaccines (1 - Tdap) 2007 Hepatitis B Vaccines (1 of 3 - 19+ 3-dose series) 2007 Cervical Cancer Screening: P ap Smear 2009 Depression Screening 10/28/2022 HIV Screening 10/28/2022 Hepatitis C Screening 10/28/2022 Social Influencers of Health Screening 10/28/2022 COVID-19 Vaccine ( - 2023-2 5 season) 2024 Influenza Vaccine (#1) 2024 HIB Vaccines Aged Out No longer eligi ble based on patient's age to complete this topic HPV Vaccines Aged Out No longer eligi ble based on patient's age to complete this topic Hepatitis A Vaccines Aged Out No long er eligible based on patient's age to complete this topic IPV Vaccines Aged Out No longer eligi ble based on patient's age to complete this topic MMR Vaccines Aged Out No longer eligi ble based on patient's age to complete this topic Meningococcal ACWY Vaccine Aged Out N o longer eligible based on patient's age to complete this topic Meningococcal B Vaccine Aged Out No l onger eligible based on patient's age to complete this topic Pneumococcal Vaccine: Pediat rics (0 to 5 Years) and At-Risk Patients (6 to 64 Years) Aged Out No longer eligible b ased on patient's age to complete this topic RSV Immunization Patients Un elio 20 months Aged Out No longer eligible b ased on patient's age to complete this topic Varicella Vaccines Aged Out No longer eligible based on patient's age to complete this topic Care Teams Research Geneticist Relationship Specialty Start Date End Date Leilani Kimbrough MD [address] [place] [address] , [address] [facility] D/B/A: [facility] [place], [place] PCP - General Internal Medicine 05/04/22
--- OUTSIDE RECORDS SUMMARY | 2025-03-03 12:06 | XMS_ITS | Clinical Summary ---
Author Organization [facility] Address [address] [place] [address] Care Team Providers Care Digital Tech Name Role Phone Leilani Wong MD Primary Care Provid er Allergies No known active allergies Medications Medication Sig Dispensed Refills Start Date End Date Status amoxicillin-clavul anate (AUGMENTIN) 875-125 MG per tablet Take 1 tablet by mouth 2 (two) times a day. 28 tablet 0 04/27/2022 Active sulfamethoxazole-t rimethoprim (BACTRIM DS) 800-160 MG per tablet Take 1 tablet (160 mg of trimethoprim total) by mouth 2 (two) times a day. 14 tablet 0 05/04/2022 Active oxyCODONE (ROXICODONE) 5 MG immediate release tablet Take 1 tablet (5 mg total) by mouth every 4 (four) hours as needed for pain. 12 tablet 0 05/04/2022 Active ibuprofen 600 MG tablet Take 1 tablet (600 mg total) by mouth every 8 (eight) hours as needed for pain. 30 tablet 0 05/04/2022 Active Active Problems No known active problems Social History Tobacco Use Types Packs/Day Years Used Date Smoking Tobacco: Never Alcohol Use Standard Drinks/Week Comments Never 0 (1 standard drink = 0.6 oz pur e alcohol) Sex and Gender Information Value Date Recorded Sex Assigned at Female 04/27/2022 2:53 PM EDT Gender Identity Female 07/01/2022 2:13 AM EDT Sexual Orientation Not on file Job Start Date Occupation Industry Not on file Not on file Not on file Last Filed Vital Signs Vital Sign Reading Time Taken Comments Blood Pressure 146/97 05/04/2022 11:11 AM EDT Pulse 79 05/04/2022 11:11 AM EDT Temperature 36.3 ??C (97.3 ??F) 05/04/2022 11:11 AM E DT Respiratory Rate 17 05/04/2022 11:11 AM EDT Oxygen Saturation 99% 05/04/2022 11:11 AM EDT Inhaled Oxygen Concentration - - Weight 78.9 kg (174 lb) 05/04/2022 11:11 AM EDT Height 157.5 cm (5' 2 ) 05/04/2022 11:11 AM EDT Body Mass Index 31.83 05/04/2022 11:11 AM EDT Plan of Treatment Health Maintenance Due Date Last Done Comments Hepatitis B Vaccines (1 of 3 - 3-dose series) 1988 Hepatitis C Screening 1988 COVID-19 Vaccine (#1) 02/06/1989 Depression Screening 2000 Preventative Health Evaluation 2006 DTap / Tdap / Td (1 - Tdap) 2007 Cervical Cancer Screening (P ap Smear) 2009 Influenza Vaccine (#1) 2024 Pneumococcal Vaccine Aged Out No long er eligible based on patient's age to complete this topic RSV Ped < 20 months Aged Out No longe r eligible based on patient's age to complete this topic Care Teams Digital Tech Relationship Specialty Start Date End Date Leilani Wong MD [address] [facility] , [address] [facility] D/B/A: [facility] [place] [address] PCP - General Internal Medicine 05/04/22
== END 2025-03-03 11:44 | disposition home or self-care (01) ==
LOC: HO.HMCH 10:36
PROVIDERS: PCP Internal Medicine; Visit Provider Internal Medicine
DX: Z01.818 Encounter for other preprocedural examination (principal); G43.909 Migraine, unspecified, not intractable, without status migrainosus

== ENCOUNTER → 2025-03-03 10:35 | Outpatient (BNVA) | payer OTHER, SELFPAY | PROVIDERS: PCP Internal Medicine; Visit Provider Internal Medicine | DX: Z01.818 Encounter for other preprocedural examination (principal); G43.909 Migraine, unspecified, not intractable, without status migrainosus | CPT/HCPCS: 99212 ==

== ENCOUNTER 2025-05-11 13:16 | Outpatient (AMB) | payer OTHER, SELFPAY ==
--- NOTE | 2025-05-11 13:28 | A.OFFPC_ITS ---
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 The patient underwent surgery on March 17, following a cancellation on March 16. She reports that the surgical site was completely sealed within three weeks, aided by massages with coconut cream. Despite feeling generally well, she experiences discomfort when lifting objects over 25 pounds. The patient plans to return to work on May 17 and requires a letter stating her fitness to resume duties. She also has migraines that has been stable avoiding triggers. [facility] Medical History Class 1 obesity with body mass index (BMI) of 32.0 to 32.9 in adult Migraines COVID-19 Surgical History (Updated 05/11/25 @ 14:41 by Leilani Kimbrough MD) History of varicose vein stripping Hx of tubal ligation Hx of cosmetic plastic surgery History of cholecystectomy Family History Father Diabetes mellitus Hypertension Mother No problems noted. Social History Housing: Apartment Alcohol intake: never Patient Tobacco Use Status: Never used Tobacco e-Cigarette/Vaping Use: Never Used Second Hand Smoke Exposure: No service: No Current occupational status: employed Current occupational exposures/hazards: No Cognitive needs: Yes Hearing needs: No Vision needs: No Female Reproductive History Menstrual Age of Menarche: 10 Questionnaire Thrive Questionnaire Date Thrive assessed: 02/16/25 I am a: Patient What is your living situation today?: I have a steady place to live Within the past 12 months, did the food you bought not last and you didn't have the money to get more?: Never true Within the past 12 months, did you worry whether your food would run out before you got money to buy more?: Never true Do you have trouble paying for medicines?: No Do you have trouble getting transportation to medical appointments?: Yes Do you have trouble paying your heating and electricity bill?: No Do you have trouble taking care of your child, family member or friend?: No Do you have trouble with day-to-day activities such as bathing, preparing meals, shopping, managing finances, etc.?: No Are you currently unemployed and looking for a job?: No Are you interested in more education?: I choose not to answer this question Please select the resources that you would like help with: None Currently or been in a relationship where the following occur: No concerns reported THRIVE Score: 1 CATHERINE-7 AMB Questionnaire CATHERINE-7 Date CATHERINE - 7 assessed: 02/16/25 Source: Developed by Drs. Brian Magallanes, Emy Addison, Tyler De Luna and colleagues, with an educational carol[place] from [employer]. Review of Systems Const All systems reviewed & are unremarkable except as noted in HPI and below Card Denies chest pain at rest, Denies chest pain with activity, Denies edema, Denies irregular heart rhythm, Denies claudication, Denies dyspnea, Denies dyspnea on exertion, Denies orthopnea, Denies paroxysmal nocturnal dyspnea and Denies slow heart rate Resp Denies cough, Denies dyspnea and Denies dyspnea on exertion GI Denies abdominal pain, Denies change in bowel habits, Denies excessive flatus, Denies nausea and Denies vomiting Physical exam (Primary Care) Vital Signs: Last Vital Signs BP 110/78 05/11/25 13:29 BMI result Body Mass Index 32.4 BMI Assessment/Plan discussion: High BMI High, discussed plan: lifestyle, weight reduction, dietary and physical activity Tobacco/Smoking Status: Tobacco use Status Tobacco use date assessed 02/16/25 05/11/25 13:33 Patient Tobacco Use Status Never used Tobacco 05/11/25 13:33 e-Cigarette/Vaping Use Never Used 05/11/25 13:33 Thrive Assessment: Date of Thrive Assessment Date Thrive assessed 02/16/25 05/11/25 13:33 Currently or been in a relationship where the following occur: No concerns reported Resp Effort & Inspection: normal respiratory effort Auscultation: clear to auscultation bilaterally Cardio Jugular venous distension: no JVD Rate: regular rate Rhythm: regular rhythm Heart sounds: S1 normal heart sound present and S2 normal heart sound present Extrem General: Yes full ROM Coding Level of Care Code Est Pt Level 3 (80376) Complex EM visit Add On G2211 Diagnoses Status post surgery Z98.890 Migraines G43.909 Time Spent (min) 18 Assessment & Plan Assessment & Plan (1) Status post surgery: Code(s): Z98.890 - Other specified postprocedural states Category: Surgical (2) Migraines: Code(s): G43.909 - Migraine, unspecified, not intractable, without status migrainosus Category: Medical Plan The patient is advised to continue monitoring her recovery and avoid lifting objects over 25 pounds until fully healed. A letter will be provided to facilitate her return to work on May 17, confirming her ability to resume duties with caution regarding heavy lifting. Patient was informed and verbally consented to the use of an ambient scribe for clinic note documentation during this visit.
[2025-05-11 13:29] VITALS: BP 110/78; BMI 32.4
--- OUTSIDE RECORDS SUMMARY | 2025-05-11 15:10 | XMS_ITS | Clinical Summary ---
Author Organization [facility] Address [address] [place] [address] Care Team Providers Care Veneer Stock Grader Name Role Phone Leilani Wong MD Primary [...] Screening (P ap Smear) 2009 Influenza Vaccine (Season Ended) 2025 Pneumococcal Vaccine Aged Out No long er eligible based on patient's age to complete this topic RSV Ped < 20 months Aged Out No longe r eligible based on patient's age to complete this topic Care Teams Veneer Stock Grader Relationship Specialty Start Date End Date Leilani Wong MD [address] [facility] , [address] [facility] D[facility]A: [facility] [place] [address] PCP - General Internal Medicine 05/04/22
== END 2025-05-11 15:34 | disposition home or self-care (01) ==
LOC: HO.HMCH 13:18
PROVIDERS: PCP Internal Medicine; Visit Provider Internal Medicine
DX: Z98.890 Other specified postprocedural states (principal); G43.909 Migraine, unspecified, not intractable, without status migrainosus

== ENCOUNTER → 2025-05-11 13:16 | Outpatient (BNVA) | payer OTHER, SELFPAY | PROVIDERS: PCP Internal Medicine; Visit Provider Internal Medicine | DX: E66.811 Obesity, class 1 (principal); G43.909 Migraine, unspecified, not intractable, without status migrainosus; Z98.890 Other specified postprocedural states; Z68.32 Body mass index [BMI] 32.0-32.9, adult | CPT/HCPCS: 99212 ==